=== PATIENT | male | born 1960 | race Caucasian/White ===

== ENCOUNTER → 2017-11-03 11:26 | Outpatient (CLI) | payer BC, SELFPAY ==
--- NOTE | 2017-11-03 13:44 | STRESSREP ---
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 The baseline ECG demonstrated normal sinus rhythm. The peak exercise ECG demonstrated somatic/motion artifact with no obvious ECG changes. There was a rare PVC during exercise and recovery. The functional capacity was considered decreased. There was no report of chest discomfort during exercise or recovery. The examination was discontinued secondary to dyspnea. Impression: 1. Technically adequate (percent predicted maximal heart rate greater than 85%) exercise tolerance test 2. Peak exercise ECG was somatic/motion artifact with no obvious ECG changes 3. Rare PVC during exercise and recovery 4. Decreased functional capacity Comment: Heart rate response compatible with deconditioned heart rate response This note was generated with [employer] Dictation software. Every effort was made to ensure accuracy, however, computerized social security specialist mistakes may persist.
--- NOTE | 2017-11-03 13:48 | STRESSREP_ITS ---
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 The baseline ECG demonstrated normal sinus rhythm. The peak exercise ECG demonstrated somatic/motion artifact with no obvious ECG changes. There was a rare PVC during exercise and recovery. The functional capacity was considered decreased. There was no report of chest discomfort during exercise or recovery. The examination was discontinued secondary to dyspnea. Impression: 1. Technically adequate (percent predicted maximal heart rate greater than 85% ) exercise tolerance test 2. Peak exercise ECG was somatic/motion artifact with no obvious ECG changes 3. Rare PVC during exercise and recovery 4. Decreased functional capacity Comment: Heart rate response compatible with deconditioned heart rate response This note was generated with [employer] Dictation software. Every effort was made to ensure accuracy, however, computerized telemetry technician mistakes may persist.
== END ==
PROVIDERS: Family Provider Preventive Medicine Occupational Medicine; PCP Preventive Medicine Occupational Medicine; Visit Provider Preventive Medicine Occupational Medicine
DX: R94.39 Abnormal result of other cardiovascular function study (principal); R94.31 Abnormal electrocardiogram [ECG] [EKG]; E11.65 Type 2 diabetes mellitus with hyperglycemia
CPT/HCPCS: 93017

== ENCOUNTER → 2017-11-30 06:05 | Outpatient (CLI) | payer BC, SELFPAY ==
--- NOTE | 2017-11-30 11:32 | STRESSREP_ITS ---
Stress Test Report Pharmacologic myocardial perfusion stress test. 57-year-old man with a history of chest pain. Stress protocol: Resting EKG demonstrates normal sinus rhythm with a rate of 91 bpm. Normal intervals are noted. Resting blood pressure is 142/96 meters of mercury. 0.4 mg of regadenoson was infused per usual protocol followed by rapid intravenous saline flush injection continuous EKG monitoring was performed. The maximum heart rate attained was 113 bpm which was 69% of maximum predicted heart rate the maximum workload attained was 1 metabolic equivalent. At rest there were no ST or T-wave changes noted suggest ischemia and at peak infusion no ST or T- wave changes were noted suggest ischemia. Myocardial perfusion protocol. 14.5 mCi of technetium 99m sestamibi was injected at rest. 0.5 mg of regadenoson was infused per usual protocol. At peak infusion 44.6 mCi of technetium 99m sestamibi was injected. Stress images were obtained stress and rest images were reconstructed and compared in the short axis vertical long and horizontal long axis. Gated images were also obtained. Perfusion SPECT analysis: Review of the stress images demonstrate normal uptake of tracer noted in all areas of the myocardium except for small portion of the apex. The resting images demonstrate a similar patent. No areas of overt reversibility are noted suggest ischemia. No previous infarct is noted. Gated SPECT analysis: The gated ejection fraction is 53%. Conclusion: Normal pharmacologic myocardial perfusion stress test. Preserved ejection fraction.
== END ==
PROVIDERS: Family Provider Preventive Medicine Occupational Medicine; PCP Preventive Medicine Occupational Medicine; Visit Provider Physician Assistant Medical
DX: R06.02 Shortness of breath (principal); E11.9 Type 2 diabetes mellitus without complications; E78.5 Hyperlipidemia, unspecified; R68.89 Other general symptoms and signs
CPT/HCPCS: 78452; 93017; A9500; A4216; J2785

== ENCOUNTER → 2019-06-07 06:34 | Outpatient (CLI) | payer BC, SELFPAY ==
[2019-03-22 15:05] VITALS: BMI 37.7
--- NOTE | 2019-06-07 06:37 | CT_ITS ---
STUDY: CT MAXILLOFACIAL SINUSES REASON FOR EXAM: Male, 58 years old. Chronic sinusitis RADIATION DOSAGE (If Supplied By Facility): CTDIvol = ( 29.38 ) mGy, DLP = ( 415.23 ) mGycm TECHNIQUE: The patient was scanned in a multi detector CT scanner. High resolution axial imaging was performed without the administration of intravenous contrast material. Sagittal and coronal images were reconstructed. Individualized dose optimization techniques were used for this CT. COMPARISON: None. FINDINGS: FRONTAL SINUSES: Mild mucosal inflammatory disease. ETHMOIDAL SINUSES: Normal aeration, without mucosal inflammatory disease. MAXILLARY SINUSES: Normal aeration, without mucosal inflammatory disease. Small defects are seen in the medial wall of the right and left maxillary sinus from prior surgery. SPHENOIDAL SINUSES: Normal aeration, without mucosal inflammatory disease. There is patency of the bilateral maxillary infundibuli with normal uncinate processes, ethmoid bullae, and hiatus semilunaris. Normal bilateral middle turbinates. Normal bilateral inferior turbinates. Normal midline nasal septum. There is patency of the bilateral nasal airways. The visualized osseous structures are normal. The visualized bilateral orbital contents are normal. CT/Sinus/Facial Bone IMPRESSION: Mild chronic ethmoid sinusitis. Electronically Signed: Jensen Roy, at 8:14 EDT Tel , Service support ,
== END ==
PROVIDERS: Family Provider Preventive Medicine Occupational Medicine; PCP Preventive Medicine Occupational Medicine
DX: J32.4 Chronic pansinusitis (principal)
CPT/HCPCS: 70486

== ENCOUNTER → 2019-06-21 09:05 | Outpatient (CLI) | payer BC, SELFPAY ==
[2019-03-22 15:05] VITALS: BMI 37.7
[2019-06-25 12:08] LABS: Alternaria tenuis <0.10 kU/L (Class 0); Ash, White <0.10 kU/L (Class 0); Aspergillus fumigatus <0.10 kU/L (Class 0); Bermuda Grass <0.10 kU/L (Class 0); Birch <0.10 kU/L (Class 0); Black Walnut <0.10 kU/L (Class 0); Cat Hair / Dander,Stand <0.10 kU/L (Class 0); Cedar, Mountain <0.10 kU/L (Class 0); Cladosporium herbarum <0.10 kU/L (Class 0); Cockroach, American <0.10 kU/L (Class 0); Cottonwood <0.10 kU/L (Class 0); D farinae Mite <0.10 kU/L (Class 0); D pteronyssinus <0.10 kU/L (Class 0); Dog Epithelia <0.10 kU/L (Class 0); Elm, American White <0.10 kU/L (Class 0); Immunoglobulin E 3 IU/mL (6-495); Maple/Box Elder <0.10 kU/L (Class 0); Mulberry, White <0.10 kU/L (Class 0); Oak, White <0.10 kU/L (Class 0); Pecan <0.10 kU/L (Class 0); Penicillium Notatum <0.10 kU/L (Class 0); Pigweed, Rough <0.10 kU/L (Class 0); Ragweed, Short/Common <0.10 kU/L (Class 0); Russian Thistle <0.10 kU/L (Class 0); Sheep Sorrel <0.10 kU/L (Class 0); Sycamore, American <0.10 kU/L (Class 0); Timothy Grass <0.10 kU/L (Class 0)
[2019-06-25 13:48] LABS: Mouse Urine <0.10 kU/L (Class 0)
== END ==
PROVIDERS: Family Provider Preventive Medicine Occupational Medicine; PCP Preventive Medicine Occupational Medicine; Referring Provider Otolaryngology; Visit Provider Otolaryngology
DX: T78.40XA Allergy, unspecified, initial encounter (principal)
CPT/HCPCS: 36415; 82785; 86003

== ENCOUNTER → 2020-10-02 06:22 | Outpatient (CLI) | payer OTHER, SELFPAY ==
[2020-09-04 10:39] VITALS: BMI 40.4
--- NOTE | 2020-10-02 06:25 | ECHOCS_ITS ---
Reason For Study: DYSPNEA/SOB Procedure This was a 2D Doppler, Color Flow transthoracic echocardiogram. The study was technically difficult. Due to body habitus. Contrast injection was performed. Exam performed in department. Left Ventricle Normal LV size. Mild concentric left ventricular hypertrophy. Left ventricular systolic function is normal. The estimated ejection fraction is 60 %. Stage 1 diastolic dysfunction. No regional wall motion abnormalities noted. Right Ventricle Normal RV size. Normal systolic function. Atria The left atrium is mildly enlarged. Normal right atrium. Mitral Valve Normal mitral valve. Tricuspid Valve Normal tricuspid valve. Aortic Valve Trisinus/trileaflet aortic valve. Pulmonic Valve The pulmonic valve is not well visualized. Great Vessels Normal aortic root. The pulmonary artery is normal size. Normal inferior vena cava. Pericardium/Pleural No pericardial effusion. Medication Diluted definity 4.0ml given slow IV push to enhance endocardial definition. MMode/2D Measurements & Calculations LVIDd: 6.2 cm IVSd: 1.3 cm Ao root diam: 3.4 cm LVIDs: 4.8 cm LVPWd: 1.3 cm FS: 21.9 % LAV(MOD-bp): 64.9 ml LA A4 area: 21.5 cm2 LA dimension(2D): 4.8 cm LAV(MOD-bp) Indexed: 26.3 ml/m2 LAV(MOD-sp2): 58.6 ml LAV(MOD-sp4): 66.3 ml RA A4 area: 16.6 cm2 Time Measurements MV dec time: 0.13 sec Doppler Measurements & Calculations MV E max patel: 63.6 cm/sec Lat Peak E' Patel: 8.6 cm/sec Med Peak E' Patel: 5.9 cm/sec MV A max patel: 76.7 cm/sec E/E' lat: 7.4 E/E' med: 10.8 MV E/A: 0.83 Ao V2 max: 125.2 cm/sec LV V1 max: 90.3 cm/sec PA V2 max: 99.7 cm/sec Ao max P.3 mmHg LV V1 max P.3 mmHg PI dec slope: 185.1 cm/sec2 Interpretation Summary Normal LV size. Mild concentric left ventricular hypertrophy. Left ventricular systolic function is normal. The estimated ejection fraction is 60 %. Stage 1 diastolic dysfunction. Contrast injection was performed. The study was technically difficult. Ordering Physician: Frank Pierre Referring Physician: Radha Hitchcock Performed By: Alexandra Novoa RDCS, RVT
--- NOTE | 2020-10-02 12:51 | STRESSREP ---
Stress Test Report Pharmacologic myocardial perfusion stress test. 60-year-old man with abnormal EKG. Stress protocol: Resting EKG demonstrates sinus rhythm with a rate of 87 bpm normal intervals are noted resting blood pressure is 130/76 mmHg. 0.4 mg of regadenoson was infused per usual protocol followed by rapid intravenous saline flush injection continuous EKG monitoring was performed. The maximum heart rate attained was 106 bpm which was 66% of maximum predicted heart rate the maximum workload was 1 metabolic equivalent. At rest there were no ST or T wave changes noted to suggest abnormal flow reserve at peak infusion nonspecific ST-T wave changes were noted such abnormal flow reserve. Myocardial perfusion protocol. 14.6 mCi of technetium 99m sestamibi was injected at rest. 0.4 mg of regadenoson was infused per usual protocol. At peak infusion 44.1 mCi of technetium 99m sestamibi was injected stress images were obtained stress and rest images were reconstructed and compared in the short axis vertical long horizontal long axis. Gated images were also obtained for Perfusion SPECT analysis: Review of the stress images demonstrate normal uptake of tracer noted in all areas of the myocardium the resting images similarly demonstrate normal uptake of tracer noted in all areas of the myocardium. No areas of reversibility are noted suggest ischemia no previous infarct is noted. Gated SPECT analysis: The gated ejection fraction is 63%. Conclusion: Normal pharmacologic myocardial perfusion stress test. Preserved ejection fraction.
== END ==
PROVIDERS: PCP Nurse Practitioner Family; Referring Provider Nurse Practitioner Family; Visit Provider Nurse Practitioner Family
DX: Z02.4 Encounter for examination for driving license (principal); R94.31 Abnormal electrocardiogram [ECG] [EKG]; E78.5 Hyperlipidemia, unspecified; R06.00 Dyspnea, unspecified; R06.02 Shortness of breath
CPT/HCPCS: 78452; 93017; 93306; A9500; Q9957; A4216; C8929; J2785

== ENCOUNTER → 2021-02-04 | Outpatient (CLI) | payer OTHER, SELFPAY ==
[2021-02-04 15:52] VITALS: BMI 39.7
[2021-02-04 16:23] LABS: Bacteria 0 SEEN /hpf (None Seen); Mucous, Urine 0 SEEN /hpf (<or=2+); Red Blood Cells-Urine 0 SEEN /hpf (0-5); Squamous Epithelial Cells - UA 0 SEEN /hpf (0-5); White Blood Cells 0 SEEN /hpf (0-5)
[2021-02-04 16:54] LABS: Color, Urine Yellow (Yellow); Glucose, Dipstick Normal (Normal); Ketone-Dipstick Negative (Negative); Leukocyte Esterase-Dipstick Negative /ul (Negative); Nitrite-Dipstick Negative (Negative); Occult Blood-Urine Negative /ul (Negative); Protein-Dipstick Negative (Negative); Specific Gravity, Urine 1.015 (1.002-1.030); Urine Bilirubin Dipstick Negative (Negative); Urine Clarity Clear (Clear); Urine Urobilinogen 1 mg/dl (Normal); Urine pH 6.5 (5.0 - 8.0)
== END | disposition home or self-care (01) ==
LOC: LABSPEC 16:22
PROVIDERS: PCP Family Medicine; Referring Provider Family Medicine; Visit Provider Family Medicine
DX: R82.90 Unspecified abnormal findings in urine (principal)
CPT/HCPCS: 81001

== ENCOUNTER 2022-03-11 06:37 | Day surgery (SDC) | payer OTHER, SELFPAY ==
[2022-03-11] VITALS (7 sets, daily range): BP systolic 97–123; BP diastolic 59–69; PULSE 70–87; RESP 16–17; TEMP 36.1–37.1; O2SAT 96–98; BMI 40.8
[2022-03-11] MEDS: Lactated Ringers 1,000 ML 15 ML IV (07:00)
--- NOTE | 2022-03-11 07:39 | H&P.OPEN ---
HPI - General HPI Narrative MINOO SANDERSON, is a 61 M who presents for screening colonoscopy. Patient reports no blood in the stool or abdominal pain. The patient used to have diarrhea but this is resolved. The patient has no family history of colon cancer. Patient has never had a colonoscopy. [facility] Medical History Abnormal EKG Acute maxillary sinusitis Anxiety Arthritis Cardiology follow-up encounter Diabetes DM type 2 (diabetes mellitus, type 2) Encounter for screening for COVID-19 Essential hypertension Former smoker Gastric reflux High cholesterol History of echocardiogram History of heart attack History of stress test HLD (hyperlipidemia) Hypertension Impetigo Shingles Shingles Shortness of breath on exertion Sleep apnea Wears glasses Home Medications acarbose 50 mg tablet 50 mg PO TID 30 days #90 tabs 11/17/17 [History Last Taken Unknown] fenofibrate nanocrystallized 145 mg tablet 145 mg PO QDAY 90 days #90 tabs 11/17/17 [History Last Taken Unknown] pioglitazone 45 mg tablet 45 mg PO QDAY 90 days #90 tabs 11/17/17 [History Last Taken Unknown] lisinopril 20 mg tablet 20 mg PO DAILY 09/04/20 [History Last Taken Unknown] dicyclomine 20 mg tablet 20 mg PO BID PRN Stomach Upset 02/04/21 [History Last Taken Unknown] gabapentin 400 mg capsule 400 mg PO TID 02/04/21 [History Last Taken Unknown] glipizide 10 mg tablet, extended release 24 hr 5 mg PO QDAY 90 days #45 tabs 02/04/21 [History Last Taken Unknown] omeprazole 20 mg capsule,delayed release 20 mg PO DAILY 02/04/21 [History Last Taken Unknown] pravastatin 20 mg tablet 80 mg PO QDAY 90 days #360 tabs 02/04/21 [History Last Taken Unknown] multivitamin 1 tab PO DAILY 12/24/21 [History Last Taken Unknown] aspirin 81 mg tablet,delayed release (Adult Low Dose Aspirin) 81 mg PO DAILY 02/11/22 [History Last Taken Unknown] metformin 1,000 mg tablet 1,000 mg PO DAILY 02/11/22 [History Last Taken Unknown] Allergy/AdvReac Type Severity Reaction Status Date / Time No Known Allergies Allergy Verified 03/11/22 07:30 Family History Mother Diabetes Hypertension HLD (hyperlipidemia) Father CAD (coronary artery disease) Alzheimers disease Brother Myocardial infarction Surgical History History of cardiac catheterization Social History Smoking Status: Former smoker how long ago did patient quit smokin alcohol intake: current alcohol intake frequency: holidays/special occasions only Alcohol type: beer substance use type: does not use caffeine: Yes Type: coffee Number of servings: 4 what type of physical activity do you participate in: bicycling frequency: 1-2 times per week duration: 15-30 minutes/day seatbelt use: always do you feel safe at home: Yes Past Medical/Surgical History Planned Operation Planned Operative Procedure/s: COLONOSCOPY Previous Hospitalizations/Surgeries HX Hospitalizations: No Any Problems With Anesthesia: No You/Your Family Experience Fever (Hyperthermia) With Anes: No Cholinesterase deficiency: No Cardiovascular Hx Hypertension: No Respiratory Hx Chronic Obstructive Pulmonary Disease (COPD): No Hx Asthma: No Hx Emphysema: No Hx Sleep Apnea: Yes (NO MACHINE) CPAP: No BIPAP: No Hx Respiratory Tract Infection/Cold (presently): No Result (for STOP score): Positive Smoking Status: Former smoker Neurological Hx Seizures: No Does patient have nerve stimulator: No Miscellaneous Recent Exposure to Contagious Disease: No Allergies No Known Allergies Allergy (Verified 03/11/22 07:30) Discharge Is Pt Admitted From a Intermediate, or a Fpc: No After D/C, Where Do you Plan to Go: Return Home Vital Signs Vital Signs Vital Signs: 03/11/22 07:26 03/11/22 07:26 Temperature 98.8 F Temperature Source Temporal Pulse Rate 87 Respiratory Rate 17 Respiratory Pattern Normal Blood Pressure 123/69 H Blood Pressure Mean 87 Blood Pressure Source Monitor Blood Pressure Position Semi-Fowlers Blood Pressure Location Right Arm Pulse Ox 98 Oxygen Delivery Method Room Air Weight Weight: 293 lb 3.437 oz Body Mass Index (BMI) 40.8 Physical Exam Const alert and oriented x3 Resp normal respiratory effort and normal air movement Cardio regular rate and regular rhythm GI soft to palpation, non-tender and non-distended Assessment & Plan Assessment/Plan (1) Encounter for screening for malignant neoplasm of colon: PLAN: Plan I explained endoscopy in detail to the patient. I explained the risks including but not limited to stroke or heart attack with anesthesia, perforation of the GI tract, bleeding, infection. I explained that any of these could necessitate further emergency surgery. The patient understands and all questions were answered sufficiently. The patient wishes to proceed with procedure. Saad Yao MD Pager: [facility] [address] [place] [address] [address] [place] [address] Office: Surgery Risks - Colonoscopy Risks Include but are not Limited To: Risks include but are not limited to: Bleeding, perforation requiring further surgery, inability to complete colonoscopy requiring barium enema.
--- NOTE | 2022-03-11 08:16 | OP.CCLET_ITS ---
03/11/2022 Jean-Pierre Casas Re : Colonoscopy procedure for Alton Vargas Dear Dr. Casas This procedure was performed on Friday, March 11, 2022. My impressions and recommendations are as follows: Impressions : - Preparation of the colon was poor. - Diverticulosis in the sigmoid colon. - No specimens collected. Recommendations : - Discharge patient to home. - Resume previous diet. - Continue present medications. - Repeat colonoscopy in 1 year because the bowel preparation was poor. My findings are described in the full procedure note, which is enclosed. If I can be of further assistance, please feel free to contact me at Doctor phone number(s): , Work: . Sincerely, Saad Yao MD 03/11/2022 8:15:39 AM This report has been signed electronically.
--- NOTE | 2022-03-11 08:16 | OP.COLON_ITS ---
Patient Name: Alton Vargas Procedure Date: 03/11/2022 7:46 AM Date of : 1960 Age: 61 Procedure: Colonoscopy Indications: Screening for colorectal malignant neoplasm Providers: Saad Yao MD Referring MD: Saad Yao MD Medicines: Monitored Anesthesia Care Patient Profile: This is a 61 year old male. Refer to note in patient chart for documentation of history and physical. Last Colonoscopy: none. The patient's first colonoscopy is today. Complications: No immediate complications. Estimated blood loss: Minimal. Procedure: Pre-Anesthesia Assessment: - Prior to the procedure, a History and Physical was performed, and patient medications and allergies were reviewed. The patient's tolerance of previous anesthesia was also reviewed. The risks and benefits of the procedure and the sedation options and risks were discussed with the patient. All questions were answered, and informed consent was obtained. Prior Anticoagulants: The patient has taken no previous anticoagulant or antiplatelet agents. After reviewing the risks and benefits, the patient was deemed in satisfactory condition to undergo the procedure. After I obtained informed consent, the scope was passed under direct vision. Throughout the procedure, the patient's blood pressure, pulse, and oxygen saturations were monitored continuously. The Colonoscope was introduced through the anus with the intention of advancing to the cecum. The scope was advanced to the hepatic flexure before the procedure was aborted. Medications were not given. The colonoscopy was unusually difficult due to inadequate bowel prep. The patient tolerated the procedure well. The quality of the bowel preparation was poor. Scope In: 7:52:51 AM Scope Out: 8:08:59 AM Total Procedure Duration Time 0 hours 16 minutes 8 seconds Findings: Multiple small-mouthed diverticula were found in the sigmoid colon. Impression: - Preparation of the colon was poor. - Diverticulosis in the sigmoid colon. - No specimens collected. Recommendation: - Discharge patient to home. - Resume previous diet. - Continue present medications. - Repeat colonoscopy in 1 year because the bowel preparation was poor. Procedure Code(s): --- Professional --- 90834, 53, Colonoscopy, flexible; diagnostic, including collection of specimen(s) by brushing or washing, when performed (separate procedure) Diagnosis Code(s): --- Professional --- Z12.11, Encounter for screening for malignant neoplasm of colon K57.30, Diverticulosis of large intestine without perforation or abscess without bleeding CPT copyright 2017 [employer]. All rights reserved. The codes documented in this report are preliminary and upon medical coder review may be revised to meet current compliance requirements. Saad Yao MD 03/11/2022 8:15:39 AM This report has been signed electronically. Number of Addenda: 0 Note Initiated On: 03/11/2022 7:46 AM
[2022-03-11 08:26] LABS: Bedside Glucose 90 mg/dL (74-106)
--- NOTE | 2022-03-11 08:59 | SUR.PHASEII ---
Patient awaiting barium enema scheduled for 1300. will wait in AC room 12.
--- NOTE | 2022-03-11 13:05 | RAD_ITS ---
STUDY: X-RAY - ABDOMEN/PELVIS REASON FOR EXAM: Male, 61 years old. Unable to complete screening colonoscopy TECHNIQUE: Single AP view of the abdomen / pelvis. COMPARISON: None. FINDINGS: Residual fecal material seen throughout the colon. Calcified gallstone seen in the right upper quadrant. The visualized liver, spleen and kidneys are grossly normal in size and morphology. Normal soft tissue structures. Normal visualized osseous structures. RAD/Abdomen Single View IMPRESSION: Residual fecal material seen in the colon. Electronically Signed: Ryne Santos MD at 14:08 EDT ,
== END 2022-03-11 12:46 | disposition home or self-care (01) ==
LOC: EN 06:38 → AC 06:40
PROVIDERS: PCP Nurse Practitioner Family; Referring Provider Surgery; Visit Provider Surgery
PROC: 0DJD8ZZ Inspection of Lower Intestinal Tract, Via Natural or Artificial Opening Endoscopic (ICD-10-PCS; CPT 45378; principal; 2022-03-11 07:55)
DX: Z12.11 Encounter for screening for malignant neoplasm of colon (principal); K57.30 Diverticulosis of large intestine without perforation or abscess without bleeding; E11.9 Type 2 diabetes mellitus without complications; I10 Essential (primary) hypertension; E78.5 Hyperlipidemia, unspecified; K21.9 Gastro-esophageal reflux disease without esophagitis; Z79.82 Long term (current) use of aspirin; Z79.84 Long term (current) use of oral hypoglycemic drugs; Z79.899 Other long term (current) drug therapy; Z87.891 Personal history of nicotine dependence
CPT/HCPCS: 45378; 74018; 74280; 82962; J7120; J2405

== ENCOUNTER 2022-12-17 08:12 | Inpatient (IN) | payer OTHER, SELFPAY ==
[2022-12-17 08:14] VITALS: BP 128/96; PULSE 93; RESP 18; TEMP 36.6; O2SAT 97; BMI 39.7
--- NOTE | 2022-12-17 08:19 | EKG12_ITS ---
Test Reason : ABNORMAL LABS Blood Pressure : / mmHG Vent. Rate : 091 BPM Atrial Rate : 091 BPM P-R Int : 158 ms QRS Dur : 104 ms QT Int : 320 ms P-R-T Axes : 033 -44 081 degrees QTc Int : 393 ms Sinus rhythm with frequent Premature ventricular complexes Left axis deviation Low voltage QRS Incomplete right bundle branch block Inferior infarct , age undetermined Possible Anterolateral infarct , age undetermined Abnormal ECG Confirmed by EVETTE ROBERTS, MONIE ([id number]), photography editor DIMITRI LARA ([id number]) on 12/19/2022 2:10:38 PM Referred By: LUIS Confirmed By:MONIE ALAS MD
[2022-12-17 08:27] LABS: Bacteria 0 SEEN /hpf (None Seen); Color, Urine Yellow (Yellow); Glucose, Dipstick Normal (Normal); Ketone-Dipstick Negative (Negative); Leukocyte Esterase-Dipstick Negative /ul (Negative); Mucous, Urine 0 SEEN /hpf (<or=2+); Nitrite-Dipstick Negative (Negative); Occult Blood-Urine 150 /ul (Negative); Protein-Dipstick Negative (Negative); Red Blood Cells-Urine 0 SEEN /hpf (0-5); Squamous Epithelial Cells - UA 0 SEEN /hpf (0-5); Urine Bilirubin Dipstick Negative (Negative); Urine Clarity Clear (Clear); Urine Urobilinogen Normal (Normal); White Blood Cells 0 SEEN /hpf (0-5)
--- NOTE | 2022-12-17 08:27 | EDS_ITS ---
HPI History of Present Illness Chief Complaint: Abn Labs Informant: patient, parent and PCP Narrative Narrative: Patient sent here from primary care office due to abnormal labs that were done yesterday, specifically because of renal failure and hyperkalemia. Patient has not been feeling well for the last couple weeks. He had decreased urine output, until his PCP told him to drink more water which he did, which increased his urine output. He states as a result of all this, he actually has been having to get up in the middle of the night to urinate. He has some chronic dyspnea with exertion which is no worse. He did not notice edema in his legs which is there, he states his legs are as usual. He denies any recent illness, but his mom states he had COVID in August and he has not been right since. [facility] Medical History Abnormal EKG Acute maxillary sinusitis Anxiety Arthritis Cardiology follow-up encounter Diabetes DM type 2 (diabetes mellitus, type 2) Encounter for screening for COVID-19 Essential hypertension Former smoker Gastric reflux High cholesterol History of echocardiogram History of heart attack History of stress test HLD (hyperlipidemia) Hypertension Impetigo Shingles Shingles Shortness of breath on exertion Sleep apnea Wears glasses Home Medications acarbose 50 mg tablet 50 mg PO TID 30 days #90 tabs 11/17/17 [History Last Taken 12/16/22] pioglitazone 45 mg tablet 45 mg PO QDAY 90 days #90 tabs 11/17/17 [History Last Taken Unknown] omeprazole 20 mg capsule,delayed release 20 mg PO DAILY 02/04/21 [History Last Taken 12/16/22] multivitamin 1 tab PO DAILY 12/24/21 [History Last Taken 12/17/22] aspirin 81 mg tablet,delayed release (Adult Low Dose Aspirin) 81 mg PO DAILY 02/11/22 [History Last Taken Unknown] pravastatin 80 mg tablet 80 mg PO DAILY CHOLESTEROL 12/17/22 [History Last Taken 12/16/22] Allergy/AdvReac Type Severity Reaction Status Date / Time No Known Allergies Allergy Verified 12/17/22 08:13 Family History Mother Diabetes Hypertension HLD (hyperlipidemia) Father CAD (coronary artery disease) Alzheimers disease Brother Myocardial infarction Surgical History History of cardiac catheterization Social History Smoking Status: Former smoker how long ago did patient quit smokin alcohol intake: current alcohol intake frequency: holidays/special occasions only Alcohol type: beer substance use type: does not use caffeine: Yes Type: coffee Number of servings: 4 what type of physical activity do you participate in: bicycling frequency: 1-2 times per week duration: 15-30 minutes/day seatbelt use: always do you feel safe at home: Yes ROS ROS ED Constitutional Constitutional ED: Denies chills or fever(s) Eyes Eyes: Denies change in vision or diplopia ENT ENT ED: Denies rhinorrhea or sore throat Cardiovascular Cardiovascular: Denies chest pain, orthopnea or palpitations Respiratory/Chest Respiratory/Chest: Reports dyspnea on exertion; Denies cough or orthopnea Gastrointestinal Gastrointestinal: Reports constipation; Denies abdominal pain, diarrhea, melena, nausea or vomiting Genitourinary Genitourinary ED: Reports as per HPI and decreased urination; Denies dysuria or hematuria Musculoskeletal Musculoskeletal: Denies back pain or neck pain Integumentary Denies abscess or rash Neurologic Neurologic: Denies headache(s), paresthesias or weakness Psychiatric Psychiatric: Denies anxiety or suicidal thoughts EXAM Physical Exam Const Vital Signs: 12/17/22 08:14 12/17/22 09:51 Temperature 97.8 F Temperature Source Temporal Pulse Rate 93 Respiratory Rate 18 Respiratory Pattern Normal Blood Pressure 128/96 H Blood Pressure Mean 106 Pulse Ox 97 Oxygen Delivery Method Room Air Positive well nourished, well developed and obese General Appearance ED: well developed and NAD Nutritional Appearance: obese HEENT Reports moist mucous membranes normocephalic and atraumatic Eyes PERRL and EOMs intact bilaterally Neck full ROM and supple Resp normal respiratory effort and clear to auscultation bilaterally Cardio regular rate, regular rhythm and no murmurs GI non-tender and non-distended Auscultation: normoactive bowel sounds Palpation: soft Back/Spine no CVA tenderness General Back: other FROM Extremity normal to inspection General Extremety ED: Yes edema; Negative for pulses abnormal or tenderness General Extremity: edema bilateral lower extremity Details: moderate; Negative for pulses abnormal Neuro oriented x3, CN's II-XII intact bilaterally, no sensory deficits noted and gait normal Sensorium / Orientation: awake and alert Motor Exam: strength 5/5 throughout Psych mental status grossly normal Skin no rashes or lesions noted and no wounds MDM MDM MDM Narrative Medical decision making narrative: Patient has never had his creatinine measured here, I did review outpatient labs showing old measurements from May 28, 2022 with BUN 26 creatinine 1.59 and potassium 5.0. Labs from yesterday as an outpatient and show BUN 62 creatinine 4.61 and potassium 5.4 with an estimated EGFR of 13. Repeated those labs today potassium is up to 6.5, obtained a urinalysis which shows occult blood but is otherwise negative with the specific gravity 1.010, the patient has been drinking fluids in the last couple days and is clinically not dehydrated, EKG does not show any changes of hyperkalemia, so holding off on emergent treatments. Clinically and hemodynamically stable with normal vital signs. Discussed with nephrology Dr. Christian, who agrees with admission and requests a renal u/s, which is ordered. History & Record Review Additional record(s) reviewed:: Prior labs Lab Data Attestation: I reviewed the patient's lab results. Labs: Laboratory Results - last 24 hr 12/17/22 12/17/22 12/17/22 08:20 09:40 09:40 WBC 3.0 L RBC 3.28 L Hgb 10.2 L Hct 32.8 L MCV 100.0 H MCH 31.1 MCHC 31.1 L RDW Std Deviation 56.8 H RDW Coeff of Stanley 15.5 H Plt Count 237 MPV 10.1 Immature Gran % (Auto) 0.300 Neut % (Auto) 56.8 Lymph % (Auto) 33.0 [place] % (Auto) 7.6 Eos % (Auto) 2.0 Baso % (Auto) 0.3 Absolute Neuts (auto) 1.7 L Absolute Lymphs (auto) 1.00 Nucleated RBC % 0 Sodium 137 Potassium 6.5 H* Chloride 109 H Carbon Dioxide 26.0 Anion Gap 2 L BUN 55 H Creatinine 3.53 H Estim Creat Clear Calc 23.11 Est GFR (MDRD) Af Amer 23 L Est GFR (MDRD) Non-Af 19 L BUN/Creatinine Ratio 15.6 Glucose 119 H Calcium 9.2 Urine Color Yellow Urine Clarity Clear Urine pH 6.0 Ur Specific [place] 1.010 Urine Protein Negative Urine Glucose (UA) Normal Urine Ketones Negative Urine Occult Blood 150 H Urine Nitrite Negative Urine Bilirubin Negative Urine Urobilinogen Normal Ur Leukocyte Esterase Negative Urine RBC 0 SEEN Urine WBC 0 SEEN Ur Squamous Epith Cells 0 SEEN Urine Bacteria 0 SEEN Urine Mucus 0 SEEN Radiography Chest X-Ray - ED: 2 View, Read by ED Physician, No Acute Disease and No Infiltrates Rhythm Strip Rhythm Strip: Sinus Rhythm Rate: 91 Ectopy: None EKG Initial EKG: Attestation: I personally reviewed and interpreted this EKG as follows: Interpretation: Sinus Rhythm, No Acute Injury Pattern and LAFB Comments: No signs of hyperkalemia, T waves are unchanged compared with prior Prior EKG tracings: available for review Prior: Unchanged Management Discussion w/another healthcare provider: Hospitalist and Fire Equipment Repairer Inspector (nephrology Dr. Christian) Discharge Plan Dx/Rx/DC Orders Clinical Impression: Acute renal failure (ARF), Hyperkalemia, diminished renal excretion, Anemia, macrocytic Disposition Disposition: Acute Care Hospital [facility]
--- NOTE | 2022-12-17 09:06 | US_ITS ---
INDICATION: acute renal failure EXAMINATION: Ultrasound US Kidney(s) complete (eg, kidneys and bladder) TECHNIQUE: Christian scale and color doppler images were obtained of the kidneys. COMPARISON: None. FINDINGS: RIGHT KIDNEY: 12.2 x 5.7 x 6.4 cm, cortical thickness 1.7 cm.. There is no hydronephrosis. No shadowing calculus, focal lesion or perinephric collection is demonstrated. LEFT KIDNEY: 12.3 x 5.2 x 6.4 cm cortical thickness 2.1 cm.. Simple cyst in the midpole measures 1.3 x 1.1 x 1.1 cm. There is no hydronephrosis. No shadowing calculus, focal lesion or perinephric collection is demonstrated. URINARY BLADDER: No acute abnormality. Bladder volume 1099.5 cc. Postvoid bladder volume 44.08 cc. Bladder wall thickness 5 mm. US/Kidney and Bladder IMPRESSION: Simple cyst of the left kidney 1.3 x 1.1 x 1.1 cm Bladder normal in appearance. Right kidney normal. Electronically Signed: Mark Hanks MD, MARCOS at 11:01 EDT ,
[2022-12-17 09:46] LABS: Absolute Neutrophil Count 1.7 X10^3/uL (2.0-7.7); Basophil# 0.01 X10^3/uL; Basophil% 0.3 % (0-1); Eosinophil# 0.06 X10^3/uL; Hematocrit 32.8 % (40-54); Hemoglobin 10.2 g/dL (13.0-16.5); Mean Corp Hgb Conc 31.1 g/dL (32-36); Mean Corpuscular Hgb 31.1 pg (27.0-32.0); Mean Platelet Vol. 10.1 fl (6.2-12.0); Monocyte# 0.23 X10^3/uL; Monocyte% 7.6 % (0-10); NRBC Flagged by Analyzer 0 % (0-5); Neutrophil # 1.72 X10^3/uL (2.7-7.7); Neutrophil % 56.8 % (47-70); Platelet Count 237 K/mm3 (150-450); RBC Distribution Width CV 15.5 % (11.6-14.6); RBC Distribution Width SD 56.8 fl (35.1-43.9); Red Blood Count 3.28 M/mm3 (4.6-6.2)
[2022-12-17 10:05] LABS: Anion Gap 2 (5-15); BUN 55 mg/dL (7-18); BUN/Creat Ratio 15.6 RATIO (10-20); Calcium,Total 9.2 mg/dL (8.5-10.1); Chloride 109 mmol/L (98-107); Creatinine, Serum 3.53 mg/dL (0.70-1.30); EST Glomerular Filtration Rate 19 mL/min (>60); Est Glom Filt Rate - Afr Amer 23 mL/min (>60); Estimated Creatinine Clearance 23.11 ml/min; Glucose 119 mg/dL (74-106); Potassium 6.5 mmol/L (3.5-5.1); Sodium Level 137 mmol/L (136-145)
--- NOTE | 2022-12-17 10:17 | HP.PCM.HOS_ITS ---
[facility] - General General Date of Admission: 12/17/22 Date of Service: 12/17/22 Chief Complaint: Abnormal labs, high potassium and creatinine. Last year it was 1.59 in May 2022 HPI Narrative MINOO SANDERSON, is a 62 M who was referred to ED by PCP for abnormal blood test. Patient had lab test on 12/16 found to have high BUN/creatinine, 62/4.61 and hyperkalemia 5.4. Prior to that it was also abnormal in May 2022, K5.0 BUN/creatinine 26/1.59. Patient further said he gained a lot of weight last 1 year probably 50 to 60 pounds. 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 He denies any recent chest pain tightness or shortness of breath although he had WA history probably 10 to 15 years ago which was medically managed. Denies history of PCI/stent. Patient also has leg swelling which he is not aware. Patient said for last 6 to 8 months he was told to drink a lot of water for kidney failure and therefore his urinating frequently every 2 hours. Denies burning pain, hematuria or other new change related symptoms. No abdominal pain. He further said he has weak abdominal muscle/hernia. No history of hernia surgery or abdominal surgery. Social history: Quit smoking 17 years ago in 2004. Prior to that 1/2 pack/day since teenage. Denies chronic alcohol use or substance use. Father: Had CAD and Alzheimer's disease. [facility] Medical History Abnormal EKG Acute maxillary sinusitis Anxiety Arthritis Cardiology follow-up encounter Diabetes DM type 2 (diabetes mellitus, type 2) Encounter for screening for COVID-19 Essential hypertension Former smoker Gastric reflux High cholesterol History of echocardiogram History of heart attack History of stress test HLD (hyperlipidemia) Hypertension Impetigo Shingles Shingles Shortness of breath on exertion Sleep apnea Wears glasses Home Medications acarbose 50 mg tablet 50 mg PO TID 30 days #90 tabs 11/17/17 [History Last Taken 12/16/22] pioglitazone 45 mg tablet 45 mg PO QDAY 90 days #90 tabs 11/17/17 [History Last Taken Unknown] omeprazole 20 mg capsule,delayed release 20 mg PO DAILY 02/04/21 [History Last Taken 12/16/22] multivitamin 1 tab PO DAILY 12/24/21 [History Last Taken 12/17/22] aspirin 81 mg tablet,delayed release (Adult Low Dose Aspirin) 81 mg PO DAILY 02/11/22 [History Last Taken Unknown] pravastatin 80 mg tablet 80 mg PO DAILY CHOLESTEROL 12/17/22 [History Last Taken 12/16/22] Allergy/AdvReac Type Severity Reaction Status Date / Time No Known Allergies Allergy Verified 12/17/22 08:13 Family History Mother Diabetes Hypertension HLD (hyperlipidemia) Father CAD (coronary artery disease) Alzheimers disease Brother Myocardial infarction Surgical History History of cardiac catheterization Social History Smoking Status: Former smoker how long ago did patient quit smokin alcohol intake: current alcohol intake frequency: holidays/special occasions only Alcohol type: beer substance use type: does not use caffeine: Yes Type: coffee Number of servings: 4 what type of physical activity do you participate in: bicycling frequency: 1-2 times per week duration: 15-30 minutes/day seatbelt use: always do you feel safe at home: Yes ROS ROS Narrative Constitutional: Reports fatigue and weakness. Gain of weight. No fever. Mainly sedentary life. HEENT: Reports systems reviewed and no addt'l complaints, except as documented Respiratory/Chest: Denies chest pain, shortness of breath at rest or with exertion Gastrointestinal: Denies coffee ground emesis, hematemesis or vomiting Genitourinary: As described in HPI. Denies burning urination Musculoskeletal: Denies joint pain and limited range of motion Neurologic: Denies seizure-like activity or stroke skin: No ulcer. No rash Endocrinology: DM type II with hyperglycemia. Reports systems reviewed and no addt'l complaints, except as documented Hematologic/Lymphatic: Reports systems reviewed and no addt'l complaints, except as documented Rest 14 ROS are negative except as mentioned in HPI Vital Signs Vital Signs Vital Signs: 12/17/22 08:14 12/17/22 09:51 Temperature 97.8 F Temperature Source Temporal Pulse Rate 93 Respiratory Rate 18 Respiratory Pattern Normal Blood Pressure 128/96 H Blood Pressure Mean 106 Pulse Ox 97 Oxygen Delivery Method Room Air Weight Weight: 285 lb Body Mass Index (BMI) 39.7 Physical Exam Narrative Physical exam: General: Alert, Oriented x3, Cooperative, morbid obesity BMI 42.0 kg/m? HEENT: Atraumatic, PERRLA, EOMI, Normocephalic Oral: Oral mucosa dry. No Gingival or Mucosal Lesions/ Ulcerations Neck: Supple, No JVD, Negative Carotid Bruits Lungs: Air entry diminished in bilateral lung bases. No crepitation/rhonchi Cardiovascular: Regular rate, Regular Rhythm, Normal S1, Normal S2, No murmurs Abdomen: Bowel Sounds Present, Soft, Non Tender, Non-Distended. Weak abdominal recti muscles with impulse on coughing. No palpable hernial swelling or sac. : No renal angle tenderness. No suprapubic tenderness. Extremities: 2+ below-knee pitting ankle edema. Capillary Refill Less than 3 Seconds Skin: No rashes, No breakdown Musculoskeletal: No Tenderness to Palpation of Joints or Extremities. Muscle strength 5/5 at major joints. ROM intact. Neurological: Cranial nerves II-XII grossly intact, DTR 2+/4 and Symmetrical, Neuro grossly intact Psych/Mental Status: Flat affect. Results Lab / Micro Data Result Diagrams: 12/17/22 09:40 12/17/22 11:03 Labs: Laboratory Results - last 24 hr 12/17/22 08:20: Urine Color Yellow, Urine Clarity Clear, Urine pH 6.0, Ur Specific [place] 1.010, Urine Protein Negative, Urine Glucose (UA) Normal, Urine Ketones Negative, Urine Occult Blood 150 H, Urine Nitrite Negative, Urine Bilirubin Negative, Urine Urobilinogen Normal, Ur Leukocyte Esterase Negative, Urine RBC 0 SEEN, Urine WBC 0 SEEN, Ur Squamous Epith Cells 0 SEEN, Urine Bacteria 0 SEEN, Urine Mucus 0 SEEN 12/17/22 09:40: WBC 3.0 L, RBC 3.28 L, Hgb 10.2 L, Hct 32.8 L, MCV 100.0 H, MCH 31.1, MCHC 31.1 L, RDW Std Deviation 56.8 H, RDW Coeff of [place] 15.5 H, Plt Count 237, MPV 10.1, Immature Gran % (Auto) 0.300, Neut % (Auto) 56.8, Lymph % (Auto) 33.0, [place] % (Auto) 7.6, Eos % (Auto) 2.0, Baso % (Auto) 0.3, Absolute Neuts (auto) 1.7 L, Absolute Lymphs (auto) 1.00, Nucleated RBC % 0 12/17/22 09:40: Sodium 137, Potassium 6.5 H*, Chloride 109 H, Carbon Dioxide 26.0, Anion Gap 2 L, BUN 55 H, Creatinine 3.53 H, Estim Creat Clear Calc 23.11, Est GFR (MDRD) Af Amer 23 L, Est GFR (MDRD) Non-Af 19 L, BUN/Creatinine Ratio 15.6, Glucose 119 H, Calcium 9.2 Rhythm Strip Rhythm Strip: Sinus Rhythm Rate: 91 Ectopy: None Assessment & Plan Assessment/Plan (1) AR (acute kidney injury): (2) CKD stage G3b/A1, GFR 30-44 and albumin creatinine ratio <30 mg/g: PLAN: Plan This is 62-year-old gentleman is being admitted for evaluation of acute kidney injury on CKD and hyperkalemia generalized swelling. 1. AR on CKD stage IIIb with hyperkalemia: Patient is being admitted in PCU. Potassium 6.5, BUN/creatinine 55/3.53, bicarb 26. Hyperkalemia cocktail was given including calcium gluconate, insulin and D50. Kayexalate given. Twelve- lead EKG individually reviewed shows sinus rhythm at 91 BPM, frequent PVCs, LAD, low voltage QRS, incomplete RBBB with nonspecific ST-T changes. Lasix 40 mg IV 1 dose. Discussed with the marketing segment manager. Renal ultrasound was done shows simple cyst of left kidney 1.3 cm otherwise normal bladder and left kidney. Serum magnesium and phosphorus are normal. 2. CKD stage IIIb with possible cardiorenal disease/diabetic nephropathy and heart failure exact etiology classification unclear: Patient had [place] about 3 years ago. Patient might have heart failure with leg swelling and weight gain therefore 2D echo is ordered. Patient has mild chronic normocytic normochromic anemia probably due to CKD. BNP ordered Patient has blood work report from May 28, 2022 shows potassium 5.0, BUN/creatinine 26/1.59, estimated creatinine clearance 45 mill per minute, normal liver chemistry, calcium 9.1. H&H 11.6/35%. Platelet count 239,000.A1c 6.2% on 01/28/2022 On 12/16, sodium normal. K5.4, BUN/creatinine 62/4.61. Albumin 4.0. Liver chemistry normal. H&H 10% platelet count 247,000. 3. Dyslipidemia: Fasting profile from 12/16 shows TG 268, TC 132, LDL 68, HDL 10. Started on the atorvastatin 40 mg daily 4. Hypertension: BP is normal. Monitor and titrate the dose of antihypertensive medications accordingly. 5. DM type II: Glucose in BMP 119. His glucose was 134 in May 2022 and 57 12/16. Glucose profile getting normal probably due to progression of CKD 6. Other chronic comorbid arthritis, morbid obesity, history of shingles and history of sleep apnea: Patient nonadherent with CPAP and does not wear CPAP.. Outpatient follow-up PCP. Living will/advanced directive/end of life care: Patient does not have living will or advanced directive. After discussion of benefits/risks procedures involved with full code, DNR CC arrest and DNR CC, the patient and her mother, they are opted for full code. Patient does want artificial life support including intubation, tube feed, ventilator and/chest compression, central venous catheter, vasopressor and DC shock if needed Total time spent in [id number] encounter in discussion of advanced directive 17 minutes. Laboratory Results 12/17/22 08:20: Urine Color Yellow, Urine Clarity Clear, Urine pH 6.0, Ur Specific [place] 1.010, Urine Protein Negative, Urine Glucose (UA) Normal, Urine Ketones Negative, Urine Occult Blood 150 H, Urine Nitrite Negative, Urine Bilirubin Negative, Urine Urobilinogen Normal, Ur Leukocyte Esterase Negative, Urine RBC 0 SEEN, Urine WBC 0 SEEN, Ur Squamous Epith Cells 0 SEEN, Urine Bacteria 0 SEEN, Urine Mucus 0 SEEN 12/17/22 09:40: WBC 3.0 L, RBC 3.28 L, Hgb 10.2 L, Hct 32.8 L, MCV 100.0 H, MCH 31.1, MCHC 31.1 L, RDW Std Deviation 56.8 H, RDW Coeff of [place] 15.5 H, Plt Count 237, MPV 10.1, Immature Gran % (Auto) 0.300, Neut % (Auto) 56.8, Lymph % (Auto) 33.0, [place] % (Auto) 7.6, Eos % (Auto) 2.0, Baso % (Auto) 0.3, Absolute Neuts (auto) 1.7 L, Absolute Lymphs (auto) 1.00, Nucleated RBC % 0 12/17/22 09:40: Sodium 137, Potassium 6.5 H*, Chloride 109 H, Carbon Dioxide 26.0, Anion Gap 2 L, BUN 55 H, Creatinine 3.53 H, Estim Creat Clear Calc 23.11, Est GFR (MDRD) Af Amer 23 L, Est GFR (MDRD) Non-Af 19 L, BUN/Creatinine Ratio 15.6, Glucose 119 H, Calcium 9.2 12/17/22 09:40: Phosphorus 3.9, Magnesium 2.3 12/17/22 11:03: Potassium 6.5 H* Clinical Impression(s) from Imaging Studies Renal Ultrasound 12/17/22 09:06 IMPRESSION: Simple cyst of the left kidney 1.3 x 1.1 x 1.1 cm Bladder normal in appearance. Right kidney normal. Chest X-Ray 12/17/22 10:57 IMPRESSION: Increased aeration consistent with strong inspiratory effort and/or mild COPD. Charges/Coding Visit Charges Inpatient E&M: 93227 Init Hosp L3 Procedures Hospitalists Procedures: 26593 Advncd Care Plan 30 Min
[2022-12-17 10:47] LABS: Magnesium 2.3 mg/dL (1.6-2.6); Phosphorus 3.9 mg/dL (2.5-4.9)
--- NOTE | 2022-12-17 10:57 | RAD_ITS ---
INDICATION: SHELDON EXAMINATION/TECHNIQUE: X-RAY - XR Chest 2 Views COMPARISON: None. FINDINGS: LINES/DEVICES: None. LUNGS: Moderate over aeration consistent with strong inspiratory effort and/or mild COPD. Lungs clear. MEDIASTINUM AND CARDIOVASCULAR STRUCTURES: Cardiac silhouette not enlarged. Central airways and mediastinal contour are unremarkable. BONES AND SOFT TISSUES: Unremarkable. RAD/Chest PA and Lateral IMPRESSION: Increased aeration consistent with strong inspiratory effort and/or mild COPD. Electronically Signed: Mark Hanks MD, MARCOS at 10:16 EDT ,
[2022-12-17 11:15] LABS: Potassium 6.5 mmol/L (3.5-5.1)
[2022-12-17 11:16] VITALS: BP 127/86; PULSE 86; RESP 16; TEMP 36.6; O2SAT 98
--- NOTE | 2022-12-17 11:17 | ED.RN ---
ADMISSION MEDS NOT GIVEN IN ED, UNABLE TO OBTAIN REPEAT POTASSIUM, LAB NOTIFIED TO DRAW.
[2022-12-17 13:04] VITALS: BMI 42.0
[2022-12-17 13:05] VITALS: BP 111/70; PULSE 86; RESP 18; TEMP 36.1; O2SAT 96
[2022-12-17] MEDS: Insulin Lispro 10 UNIT in Syringe 0 ML 6 UNIT IV (13:46)
[2022-12-17] MEDS: Sodium Polystyrene Sulfonate 15 GM/60 ML UDC 30 GM PO (13:46)
[2022-12-17] MEDS: Dextrose 50%-Water 25 GM/50 ML DISP.SYRIN IV (13:47)
[2022-12-17] MEDS: Calcium Gluconate 1 GM/10 ML Vial IVP (14:52)
--- NOTE | 2022-12-17 15:28 | CON.PCM.RE_ITS ---
Assessment & Plan Assessment/Plan (1) AR (acute kidney injury): (2) Chronic kidney disease, stage 3b: (3) Hyperkalemia: (4) Edema: PLAN: Plan Impression/Plan: The patient is a 62-year-old man with past history of type 2 diabetes mellitus, hypertension, hyperlipidemia, BASHIR, and GERD. The patient presented to the hospital on 12/17/2022 because of abnormal blood work showing AR on CKD. [facility] is following for AR on CKD, hyperkalemia, and volume overload. Acute kidney injury on chronic kidney disease stage IIIb. The patient was found to have AR on CKD with serum creatinine of 4.61 mg/dL on 12/16/2022. Serum creatinine was 1.59 mg/dL on 05/28/2022. The patient was instructed by his PCP to present to the emergency department because of the sudden rise in serum creatinine. Repeat serum creatinine at the hospital on 12/17/2022 was better at 3.53 mg/dL. However, the patient is hyperkalemic with potassium level of 6.5 mmol/L. Suspect increasing creatinine is due to progression of underlying CKD. Nevertheless, loss of GFR is quite quick. He has lost 23 mL/min of GFR in the last 6 months. Therefore, we should look for any reversible causes. The patient may have cardiorenal syndrome since he does have edema of the lower extremities. I agree with treating the patient with Lasix although I would not yet schedule diuretic every day. Lasix will help the patient excrete potassium as well. Another possibility would be progression of nephrotic syndrome possibly due to diabetic kidney disease. I will check urine protein to creatinine ratio. There is no urgent need for kidney replacement therapy. Recheck renal function, volume status, electrolytes, and acid-base status again tomorrow. Hyperkalemia. Potassium level 6.5 mmol/L. Hyperkalemia is likely due to AR on CKD and dietary indiscretion. The patient was not on KEYON inhibitor or supplemental potassium chloride as far as I can tell from medication review. The patient has absolutely no idea what he takes at home. The patient is being treated with medical therapy with insulin?D50. He is also getting SPS. Recheck serum potassium again tomorrow. Edema. The patient has lower extremity edema although there is no evidence of pulmonary edema on chest x-ray or an lung exam. Nevertheless, I agree with 1 dose of IV Lasix and rechecking volume status and renal function again tomorrow. I will also check urine protein to creatinine ratio. Agree with plan to check echocardiogram on 12/19/2022. Nephrology plan discussed with Dr. Fontana. HPI Consult Data Date of Consult: 12/17/22 HPI Narrative Reason for Consultation: Acute kidney injury on chronic kidney disease HPI Narrative: MINOO SANDERSON is a 62-year-old man with past history of type 2 diabetes mellitus, hypertension, hyperlipidemia, BASHIR, and GERD. The patient presented to the hospital on 12/17/2022 because of abnormal blood work. Patient was found to have serum creatinine of 4.61 mg/dL on 12/16/2022 with mild hyperkalemia. Potassium was 5.4 mmol/L. 6 months earlier on 05/28/2022, serum creatinine was 1.59 mg/dL. The patient actually feels relatively well. He denies chest pain, shortness of breath, nausea, vomiting, or anorexia. He does have loose bowel movement for the past 3 to 4 weeks. He also complains of urinary frequency which has been more severe in the last 3 months. There is no urinary dribbling, hesitation or incontinence. Ultrasound kidneys from earlier today did not show any hydroneph rosis. The patient does have chronic lower extremity edema. He believes that edema has been stable in severity for the last 3 months. He reports recent weight gain, but he attributes it to increasing oral intake. He denies orthopnea or PND. The patient denies taking NSAIDs on a regular basis. [facility] Medical History Abnormal EKG Acute maxillary sinusitis Anxiety Arthritis Cardiology follow-up encounter Diabetes DM type 2 (diabetes mellitus, type 2) Encounter for screening for COVID-19 Essential hypertension Former smoker Gastric reflux High cholesterol History of echocardiogram History of heart attack History of stress test HLD (hyperlipidemia) Hypertension Impetigo Shingles Shingles Shortness of breath on exertion Sleep apnea Wears glasses Home Medications acarbose 50 mg tablet 50 mg PO TID 30 days #90 tabs 11/17/17 [History Last Taken 12/16/22] pioglitazone 45 mg tablet 45 mg PO QDAY 90 days #90 tabs 11/17/17 [History Last Taken Unknown] omeprazole 20 mg capsule,delayed release 20 mg PO DAILY 02/04/21 [History Last Taken 12/16/22] multivitamin 1 tab PO DAILY 12/24/21 [History Last Taken 12/17/22] aspirin 81 mg tablet,delayed release (Adult Low Dose Aspirin) 81 mg PO DAILY 02/11/22 [History Last Taken Unknown] pravastatin 80 mg tablet 80 mg PO DAILY CHOLESTEROL 12/17/22 [History Last Taken 12/16/22] Allergy/AdvReac Type Severity Reaction Status Date / Time No Known Allergies Allergy Verified 12/17/22 08:13 Family History Mother Diabetes Hypertension HLD (hyperlipidemia) Father CAD (coronary artery disease) Alzheimers disease Brother Myocardial infarction Surgical History History of cardiac catheterization Social History Smoking Status: Former smoker how long ago did patient quit smokin alcohol intake: current alcohol intake frequency: holidays/special occasions only Alcohol type: beer substance use type: does not use caffeine: Yes Type: coffee Number of servings: 4 what type of physical activity do you participate in: bicycling frequency: 1-2 times per week duration: 15-30 minutes/day seatbelt use: always do you feel safe at home: Yes ROS ROS Narrative 07/04 ROS was done and is otherwise noncontributory to HPI. Physical Exam Narrative General appearance: Alert and oriented x3, NAD. HEENT: Normocephalic, atraumatic, mucous membrane moist, no erythema. PERRLA, EOMI , hearing is intact. Neck: Supple, no JVD although neck is thick. No thyromegaly palpable. Trachea is midline. Cardiovascular: Normal S1, S2. No rubs, murmurs, or gallops. Lungs: Clear to auscultation bilaterally. Abdomen: Normal bowel sound, obese, soft, nontender, no guarding or rebound. Extremities: No clubbing or cyanosis. There is 2+ edema of the lower extremities bilaterally. Neurologic: No focal neurologic deficits. Strength are equal bilaterally. Skin: Warm and dry, no rash. Musculoskeletal: Full range of motion, no joint swelling. Psychiatric: Normal mood and affect. Lab / Micro Data Result Diagrams: 12/17/22 09:40 12/17/22 11:03 Labs: Laboratory Results - last 24 hr 12/17/22 08:20: Urine Color Yellow, Urine Clarity Clear, Urine pH 6.0, Ur Spec ific [place] 1.010, Urine Protein Negative, Urine Glucose (UA) Normal, Urine Ketones Negative, Urine Occult Blood 150 H, Urine Nitrite Negative, Urine Bilirubin Negative, Urine Urobilinogen Normal, Ur Leukocyte Esterase Negative, Urine RBC 0 SEEN, Urine WBC 0 SEEN, Ur Squamous Epith Cells 0 SEEN, Urine Bacteria 0 SEEN, Urine Mucus 0 SEEN 12/17/22 09:40: WBC 3.0 L, RBC 3.28 L, Hgb 10.2 L, Hct 32.8 L, MCV 100.0 H, MCH 31.1, MCHC 31.1 L, RDW Std Deviation 56.8 H, RDW Coeff of [place] 15.5 H, Plt Count 237, MPV 10.1, Immature Gran % (Auto) 0.300, Neut % (Auto) 56.8, Lymph % (Auto) 33.0, [place] % (Auto) 7.6, Eos % (Auto) 2.0, Baso % (Auto) 0.3, Absolute Neuts ( auto) 1.7 L, Absolute Lymphs (auto) 1.00, Nucleated RBC % 0 12/17/22 09:40: Sodium 137, Potassium 6.5 H*, Chloride 109 H, Carbon Dioxide 26.0, Anion Gap 2 L, BUN 55 H, Creatinine 3.53 H, Estim Creat Clear Calc 23.11, Est GFR (MDRD) Af Amer 23 L, Est GFR (MDRD) Non-Af 19 L, BUN/Creatinine Ratio 15.6, Glucose 119 H, Calcium 9.2 12/17/22 09:40: Phosphorus 3.9, Magnesium 2.3 12/17/22 11:03: Potassium 6.5 H* Rhythm Strip Rhythm Strip: Sinus Rhythm Rate: 91 Ectopy: None Radiology Impression Renal Ultrasound 12/17/22 09:06 IMPRESSION: Simple cyst of the left kidney 1.3 x 1.1 x 1.1 cm Bladder normal in appearance. Right kidney normal. Electronically Signed: Mark Hanks MD, MARCOS at 11:01 EDT , Chest X-Ray 12/17/22 10:57 IMPRESSION: Increased aeration consistent with strong inspiratory effort and/or mild COPD. Electronically Signed: Mark Hanks MD, MARCOS at 10:16 EDT ,
[2022-12-17] MEDS: Furosemide 40 MG/4 ML Vial IV (15:46)
[2022-12-17] MEDS: Acarbose 50 MG Tablet PO (17:14)
[2022-12-17 17:19] VITALS: BP 108/72; PULSE 87; RESP 16; TEMP 36.2; O2SAT 97
[2022-12-17 17:37] LABS: Protein, Urine (Random) 8.4 mg/dL (<11.9); Urea Nitrogen, Urine 326 mg/dL (NO RANGE EST.); Urine Sodium 35 mmol/L (Not Establ.)
[2022-12-17 17:45] LABS: Bedside Glucose 73 mg/dL (74-106)
[2022-12-17] MEDS: Heparin Injection (Vial) 5,000 UNIT/ML VIAL 5000 UNIT SC (20:41)
[2022-12-17] MEDS: Pravastatin 80 MG Tablet PO (20:41)
[2022-12-17 20:49] VITALS: BP 91/64; PULSE 95; RESP 16; TEMP 36.6; O2SAT 100
[2022-12-18 00:45] LABS: Bedside Glucose 126 mg/dL (74-106)
[2022-12-18 02:50] VITALS: BP 102/69; PULSE 94; RESP 15; TEMP 36.8; O2SAT 94
[2022-12-18 04:38] VITALS: BMI 41.5
[2022-12-18 06:40] LABS: Bedside Glucose 112 mg/dL (74-106)
[2022-12-18 06:55] LABS: Absolute Lymphocyte Count 1.29 X10^3/uL (0.83-4.51); Absolute Neutrophil Count 1.9 X10^3/uL (2.0-7.7); Basophil# 0.01 X10^3/uL; Basophil% 0.3 % (0-1); Eosinophil# 0.04 X10^3/uL; Eosinophils% 1.2 % (0-5); Hematocrit 30.4 % (40-54); Hemoglobin 9.4 g/dL (13.0-16.5); Lymphocyte # 1.29 X10^3/ul (0.83-4.51); Lymphocyte % 37.8 % (19-41); Mean Corp Hgb Conc 30.9 g/dL (32-36); Mean Corpuscular Hgb 30.7 pg (27.0-32.0); Mean Corpuscular Volume 99.3 fL (80-94); Mean Platelet Vol. 10.3 fl (6.2-12.0); Monocyte# 0.18 X10^3/uL; Monocyte% 5.3 % (0-10); NRBC Flagged by Analyzer 0 % (0-5); Neutrophil # 1.88 X10^3/uL (2.7-7.7); Neutrophil % 55.1 % (47-70); Platelet Count 233 K/mm3 (150-450); RBC Distribution Width CV 15.8 % (11.6-14.6); RBC Distribution Width SD 57.8 fl (35.1-43.9); Red Blood Count 3.06 M/mm3 (4.6-6.2); White Blood Count 3.4 K/mm3 (4.4-11.0)
[2022-12-18 07:10] LABS: Albumin, Serum 3.1 g/dL (3.2-5.0); Anion Gap 3 (5-15); BUN 49 mg/dL (7-18); BUN/Creat Ratio 17.6 RATIO (10-20); Chloride 110 mmol/L (98-107); Creatinine, Serum 2.79 mg/dL (0.70-1.30); EST Glomerular Filtration Rate 25 mL/min (>60); Est Glom Filt Rate - Afr Amer 30 mL/min (>60); Estimated Creatinine Clearance 29.24 ml/min; Glucose 103 mg/dL (74-106); Phosphorus 3.7 mg/dL (2.5-4.9); Potassium 5.1 mmol/L (3.5-5.1); Sodium Level 140 mmol/L (136-145)
--- NOTE | 2022-12-18 07:49 | PN.HOSP_ITS ---
Reason for Visit Reason for Visit: Diagnoses Hyperkalemia (12/17/22) Acute kidney failure, unspecified (12/17/22) Chronic kidney disease, stage 3b (12/17/22) Edema, unspecified (12/17/22) Follow-up for AR on CKD stage IIIb, hyperkalemia and hypervolemia Objective Data Objective Data Vital Signs: Vital Signs Temp Pulse Resp BP Pulse Ox O2 Del Method 98.3 F 94 15 102/69 94 Room Air 12/18/22 02:50 12/18/22 02:50 12/18/22 02:50 12/18/22 02:50 12/18/22 02:50 12/18/22 03:43 Oxygen Delivery Method Room Air Weight: 297 lb 13.512 oz Body Mass Index (BMI) 41.5 Intake & Output: Intake and Output for Last 24 Hours 12/16/22 12/17/22 12/18/22 23:59 23:59 23:59 Intake Total 240 / 240 Output Total 2585 / 2585 0 / 0 Balance -2345 / -2345 0 / 0 Lab / Micro Data Result Diagrams: 12/18/22 06:30 12/18/22 06:30 Labs: Laboratory Results - last 24 hr 12/17/22 08:20: Urine Color Yellow, Urine Clarity Clear, Urine pH 6.0, Ur Specif ic [place] 1.010, Urine Protein Negative, Urine Glucose (UA) Normal, Urine Ketones Negative, Urine Occult Blood 150 H, Urine Nitrite Negative, Urine Bilirubin Negative, Urine Urobilinogen Normal, Ur Leukocyte Esterase Negative, Urine RBC 0 SEEN, Urine WBC 0 SEEN, Ur Squamous Epith Cells 0 SEEN, Urine Bacteria 0 SEEN, Urine Mucus 0 SEEN 12/17/22 08:20: U Random Total Protein 8.4, Ur Random Sodium 35, Urine Urea Nitrogen 326 12/17/22 08:20: Urine Creatinine 42.30 12/17/22 09:40: WBC 3.0 L, RBC 3.28 L, Hgb 10.2 L, Hct 32.8 L, MCV 100.0 H, MCH 31.1, MCHC 31.1 L, RDW Std Deviation 56.8 H, RDW Coeff of [place] 15.5 H, Plt Count 237, MPV 10.1, Immature Gran % (Auto) 0.300, Neut % (Auto) 56.8, Lymph % (Auto) 33.0, [place] % (Auto) 7.6, Eos % (Auto) 2.0, Baso % (Auto) 0.3, Absolute Neuts (auto) 1.7 L, Absolute Lymphs (auto) 1.00, Nucleated RBC % 0 12/17/22 09:40: Sodium 137, Potassium 6.5 H*, Chloride 109 H, Carbon Dioxide 26.0, Anion Gap 2 L, BUN 55 H, Creatinine 3.53 H, Estim Creat Clear Calc 23.11, Est GFR (MDRD) Af Amer 23 L, Est GFR (MDRD) Non-Af 19 L, BUN/Creatinine Ratio 15.6, Glucose 119 H, Calcium 9.2 12/17/22 09:40: Phosphorus 3.9, Magnesium 2.3 12/17/22 11:03: Potassium 6.5 H* 12/17/22 17:08: POC Glucose 73 L 12/17/22 20:45: POC Glucose 126 H 12/18/22 06:22: POC Glucose 112 H 12/18/22 06:30: WBC 3.4 L, RBC 3.06 L, Hgb 9.4 L, Hct 30.4 L, MCV 99.3 H, MCH 30.7, MCHC 30.9 L, RDW Std Deviation 57.8 H, RDW Coeff of [place] 15.8 H, Plt Count 233, MPV 10.3, Immature Gran % (Auto) 0.300, Neut % (Auto) 55.1, Lymph % (Auto) 37.8, [place] % (Auto) 5.3, Eos % (Auto) 1.2, Baso % (Auto) 0.3, Absolute Neuts (auto) 1.9 L, Absolute Lymphs (auto) 1.29, Nucleated RBC % 0 12/18/22 06:30: Sodium 140, Potassium 5.1, Chloride 110 H, Carbon Dioxide 27.0, Anion Gap 3 L, BUN 49 H, Creatinine 2.79 H, Estim Creat Clear Calc 29.24, Est GFR (MDRD) Af Amer 30 L, Est GFR (MDRD) Non-Af 25 L, BUN/Creatinine Ratio 17.6, Glucose 103, Calcium 9.0, Phosphorus 3.7, Albumin 3.1 L Radiography Diagnostic Testing: Radiology Impression Renal Ultrasound 12/17/22 09:06 IMPRESSION: Simple cyst of the left kidney 1.3 x 1.1 x 1.1 cm Bladder normal in appearance. Right kidney normal. Electronically Signed: Mark Hanks MD, JD at 11:01 EDT , Chest X-Ray 12/17/22 10:57 IMPRESSION: Increased aeration consistent with strong inspiratory effort and/or mild COPD. Electronically Signed: Mark Hanks MD, JD at 10:16 EDT , Rhythm Strip Rhythm Strip: Sinus Rhythm Rate: 91 Ectopy: None Physical Exam Narrative Physical exam: General: Alert, Oriented x3, Cooperative, morbid obesity BMI 42.0 kg/m? HEENT: Atraumatic, PERRLA, EOMI, Normocephalic Oral: Oral mucosa . No Gingival or Mucosal Lesions/ Ulcerations Neck: Supple, No JVD, Negative Carotid Bruits Lungs: Air entry diminished in bilateral lung bases. No crepitation/rhonchi Cardiovascular: Regular rate, Regular Rhythm, Normal S1, Normal S2, No murmurs Abdomen: Bowel Sounds Present, Soft, Non Tender, Non-Distended. Weak abdominal recti muscles with impulse on coughing : No renal angle tenderness. No suprapubic tenderness. Extremities: Leg pitting edema is better, improving. Capillary Refill Less than 3 Seconds Skin: No rashes, No breakdown Musculoskeletal: No Tenderness to Palpation of Joints or Extremities. Muscle strength 5/5 at major joints. ROM intact. Neurological: Cranial nerves II-XII grossly intact, DTR 2+/4 and Symmetrical, Neuro grossly intact Psych/Mental Status: Flat affect. Assessment & Plan Assessment/Plan (1) AR (acute kidney injury): (2) CKD stage G3b/A1, GFR 30-44 and albumin creatinine ratio <30 mg/g: PLAN: Plan This is 62-year-old gentleman is being admitted for evaluation of acute kidney injury on CKD and hyperkalemia generalized swelling. 1. AR on CKD stage IIIb with hyperkalemia and hypervolemia: Patient is being admitted in PCU. Potassium 6.5, BUN/creatinine 55/3.53, bicarb 26. Hyperkalemia cocktail was given including calcium gluconate, insulin and D50. Kayexalate given. Twelve-lead EKG individually reviewed shows sinus rhythm at 91 BPM, frequent PVCs, LAD, low voltage QRS, incomplete RBBB with nonspecific ST-T changes. Lasix 40 mg IV 1 dose. Discussed with the sponge packer. Renal ultrasound was done shows simple cyst of left kidney 1.3 cm otherwise normal bladder and left kidney. Serum magnesium and phosphorus are normal. 12/18: [employer] consult reviewed and discussed with him. Patient had Lasix 40 mg 1 dose yesterday and leg edema is better. BUN/creatinine is improving. Random protein 8.4, sodium 35, urea nitrogen 26. TSH normal. 2. CKD stage IIIb with possible cardiorenal disease/diabetic nephropathy and heart failure exact etiology classification unclear: Patient had [facility] about 3 years ago. Patient might have heart failure with leg swelling and weight gain therefore 2D echo is ordered. Patient has mild chronic normocytic normochromic anemia probably due to CKD. Patient has blood work report from May 28, 2022 shows potassium 5.0, BUN/creatinine 26/1.59, estimated creatinine clearance 45 mill per minute, normal liver chemistry, calcium 9.1. H&H 11.6/35%. Platelet count 239,000.A1c 6.2% on 01/28/2022 On 12/16, sodium normal. K5.4, BUN/creatinine 62/4.61. Albumin 4.0. Liver giancarlo linda normal. H&H 10/31% platelet count 247,000. 3. Dyslipidemia: Fasting profile from 12/16 shows TG 268, TC 132, LDL 68, HDL 10. Started on the atorvastatin 40 mg daily 4. Hypertension: BP is normal. Monitor and titrate the dose of antihypertensive medications accordingly. 5. DM type II: Glucose in BMP 119. His glucose was 134 in May 2022 and 57 12/16. Glucose profile getting normal probably due to progression of CKD 12/18: A1c ordered and pending. 6. Other chronic comorbid arthritis, morbid obesity, history of shingles and history of sleep apnea: Patient nonadherent with CPAP and does not wear CPAP.. Outpatient follow-up PCP. Living will/advanced directive/end of life care: Patient does not have living will or advanced directive. After discussion of benefits/risks procedures involved with full code, DNR CC arrest and DNR CC, the patient and her mother, they are opted for full code. Patient does want artificial life support including intubation, tube feed, vent ilator and/chest compression, central venous catheter, vasopressor and DC shock if needed Clinical Impression(s) from Imaging Studies Renal Ultrasound 12/17/22 09:06 IMPRESSION: Simple cyst of the left kidney 1.3 x 1.1 x 1.1 cm Bladder normal in appearance. Right kidney normal. Chest X-Ray 12/17/22 10:57 IMPRESSION: Increased aeration consistent with strong inspiratory effort and/or mild COPD. Charges/Coding Visit Charges Inpatient E&M: 47017 Subs Hosp L2
[2022-12-18 08:23] LABS: Thyroid Stim Hormone (TSH) 2.34 uIU/mL (0.358-3.74)
[2022-12-18 08:37] VITALS: BP 98/69; PULSE 92; RESP 18; TEMP 36.2; O2SAT 94
[2022-12-18] MEDS: Aspirin E.C. 81 MG Tablet PO (08:39)
[2022-12-18] MEDS: Multivitamins,Therapeutic Tablet 1 TABLET PO (08:39)
[2022-12-18] MEDS: Heparin Injection (Vial) 5,000 UNIT/ML VIAL 5000 UNIT SC ×2 (08:39→21:24)
[2022-12-18] MEDS: Pantoprazole Sodium 20 MG Tablet PO (08:39)
[2022-12-18] MEDS: Acarbose 50 MG Tablet PO ×3 (08:40→16:53)
[2022-12-18 10:02] LABS: BNP,B-Type NATRIURETIC PEPTIDE 50.1 pg/mL (0-100)
[2022-12-18 12:30] LABS: Bedside Glucose 131 mg/dL (74-106)
[2022-12-18 14:31] VITALS: BP 121/73; PULSE 92; RESP 16; TEMP 36.6; O2SAT 98
[2022-12-18 17:16] LABS: Bedside Glucose 112 mg/dL (74-106)
--- NOTE | 2022-12-18 17:20 | PCM.PN.REN ---
Subjective Subjective Following for AR. The patient denies chest pain, shortness of breath, or nausea. Lower extremity edema has improved. Objective Data Objective Data Vital Signs: Vital Signs Temp Pulse Resp BP Pulse Ox O2 Del Method 97.8 F 92 16 121/73 H 98 Room Air 12/18/22 14:31 12/18/22 14:31 12/18/22 14:31 12/18/22 14:31 12/18/22 14:31 12/18/22 14:31 Oxygen Delivery Method Room Air Weight: 135.1 kg Body Mass Index (BMI) 41.5 Intake & Output: Intake and Output for Last 24 Hours 12/16/22 12/17/22 12/18/22 23:59 23:59 23:59 Intake Total 240 / 240 480 / 480 Output Total 2585 / 2585 1400 / 1400 Balance -2345 / -2345 -920 / -920 Lab / Micro Data Result Diagrams: 12/18/22 06:30 12/18/22 06:30 Labs: Laboratory Results - last 24 hr 12/17/22 08:20: U Random Total Protein 8.4, Ur Random Sodium 35, Urine Urea Nitrogen 326 12/17/22 08:20: Urine Creatinine 42.30 12/17/22 17:08: POC Glucose 73 L 12/17/22 20:45: POC Glucose 126 H 12/18/22 06:22: POC Glucose 112 H 12/18/22 06:30: WBC 3.4 L, RBC 3.06 L, Hgb 9.4 L, Hct 30.4 L, MCV 99.3 H, MCH 30.7, MCHC 30.9 L, RDW Std Deviation 57.8 H, RDW Coeff of [place] 15.8 H, Plt Count 233, MPV 10.3, Immature Gran % (Auto) 0.300, Neut % (Auto) 55.1, Lymph % (Auto) 37.8, [place] % (Auto) 5.3, Eos % (Auto) 1.2, Baso % (Auto) 0.3, Absolute Neuts (auto) 1.9 L, Absolute Lymphs (auto) 1.29, Nucleated RBC % 0 12/18/22 06:30: Sodium 140, Potassium 5.1, Chloride 110 H, Carbon Dioxide 27.0, Anion Gap 3 L, BUN 49 H, Creatinine 2.79 H, Estim Creat Clear Calc 29.24, Est GFR (MDRD) Af Amer 30 L, Est GFR (MDRD) Non-Af 25 L, BUN/Creatinine Ratio 17.6, Glucose 103, Calcium 9.0, Phosphorus 3.7, Albumin 3.1 L 12/18/22 06:30: TSH 2.34 12/18/22 09:10: B-Natriuretic Peptide 50.1 12/18/22 12:05: POC Glucose 131 H 12/18/22 16:49: POC Glucose 112 H Rhythm Strip Rhythm Strip: Sinus Rhythm Rate: 91 Ectopy: None Physical Exam Narrative General appearance: Alert and oriented x3, NAD. Neck: Supple, no JVD although neck is thick. No thyromegaly palpable. Trachea is midline. Cardiovascular: Normal S1, S2. No rubs, murmurs, or gallops. Lungs: Clear to auscultation bilaterally. Abdomen: Normal bowel sound, obese, soft, nontender, no guarding or rebound. Extremities: No clubbing or cyanosis. There is 1+ edema of the lower extremities bilaterally. Assessment & Plan Assessment/Plan (1) AR (acute kidney injury): (2) Chronic kidney disease, stage 3b: (3) Hyperkalemia: (4) Edema: PLAN: Plan Impression/Plan: The patient is a 62-year-old man with past history of type 2 diabetes mellitus, hypertension, hyperlipidemia, BASHIR, and GERD. The patient presented to the hospital on 12/17/2022 because of abnormal blood work showing AR on CKD. Nephrology is following for AR on CKD, hyperkalemia, and volume overload. Acute kidney injury on chronic kidney disease stage IIIb. The patient was found to have AR on CKD with serum creatinine of 4.61 mg/dL on 12/16/2022. Serum creatinine was 1.59 mg/dL on 05/28/2022. The patient was instructed by his PCP to present to the emergency department because of the sudden rise in serum creatinine. Repeat serum creatinine at the hospital on 12/17/2022 was better at 3.53 mg/dL. However, the patient is hyperkalemic with potassium level of 6.5 mmol/L. Suspect worsening renal function is due to progression of underlying CKD. Nevertheless, loss of GFR is quite quick. He has lost 23 mL/min of GFR in the last 6 months. Urine protein to creatinine ratio is only 198 mg/g, so progression of CKD due to diabetic kidney disease is less likely. Therefore, we should look for any reversible causes for AR. The patient may have cardiorenal syndrome since he does have edema of the lower extremities. The patient was given 1 dose of IV Lasix yesterday. Agree with holding Lasix today and reassessing renal function and volume status again tomorrow. The patient is scheduled for echocardiogram tomorrow on 12/19/2022. Renal function is stabilized in the last 24 hours. Serum creatinine improved from 3.53 mg/dL on 12/17/2022 down to 2.79 mg/dL today. There is no urgent need for kidney replacement therapy. Recheck renal function, volume status, electrolytes, and acid-base status again tomorrow. Hyperkalemia. Potassium level was 6.5 mmol/L on 12/17/2022. Hyperkalemia is likely due to AR on CKD and dietary indiscretion. The patient was not on KEYON inhibitor or supplemental potassium chloride as far as I can tell from medication review, but the patient has absolutely no idea what he takes at home. The patient is being treated with medical therapy with insulin?D50. He also received SPS. Potassium level is better today at 5.1 mmol/L. Recheck serum potassium again tomorrow. Edema. The patient has lower extremity edema although there is no evidence of pulmonary edema on chest x-ray or an lung exam. The patient received 1 dose of IV Lasix yesterday with clinical improvement without worsening renal function. There is less lower extremity edema. Urine protein to creatinine ratio does not suggest nephrotic syndrome. Agree with plan to check echocardiogram on 12/19/2022. Nephrology plan discussed with Dr. Fontana.
[2022-12-18 18:00] LABS: Hemoglobin A1c 5.8 % (3.8-5.6)
[2022-12-18 20:30] VITALS: BP 128/89; PULSE 95; RESP 18; TEMP 36.6; O2SAT 99
[2022-12-18] MEDS: Pravastatin 80 MG Tablet PO (21:24)
[2022-12-19 02:05] LABS: Bedside Glucose 82 mg/dL (74-106)
[2022-12-19 03:04] VITALS: BP 104/72; PULSE 97; RESP 15; TEMP 36.8; O2SAT 96
[2022-12-19 05:01] VITALS: BMI 40.6
[2022-12-19 05:13] LABS: Absolute Lymphocyte Count 1.14 X10^3/uL (0.83-4.51); Absolute Neutrophil Count 1.4 X10^3/uL (2.0-7.7); Eosinophil# 0.03 X10^3/uL; Eosinophils% 1.1 % (0-5); Hematocrit 30.5 % (40-54); Hemoglobin 9.4 g/dL (13.0-16.5); Lymphocyte # 1.14 X10^3/ul (0.83-4.51); Lymphocyte % 40.7 % (19-41); Mean Corp Hgb Conc 30.8 g/dL (32-36); Mean Corpuscular Hgb 30.6 pg (27.0-32.0); Mean Corpuscular Volume 99.3 fL (80-94); Mean Platelet Vol. 10.1 fl (6.2-12.0); Monocyte# 0.18 X10^3/uL; Monocyte% 6.4 % (0-10); NRBC Flagged by Analyzer 0 % (0-5); Neutrophil # 1.43 X10^3/uL (2.7-7.7); Neutrophil % 51.1 % (47-70); Platelet Count 216 K/mm3 (150-450); RBC Distribution Width CV 15.3 % (11.6-14.6); RBC Distribution Width SD 55.8 fl (35.1-43.9); Red Blood Count 3.07 M/mm3 (4.6-6.2); White Blood Count 2.8 K/mm3 (4.4-11.0)
[2022-12-19 05:37] LABS: Anion Gap 5 (5-15); BUN 39 mg/dL (7-18); BUN/Creat Ratio 17.6 RATIO (10-20); Chloride 110 mmol/L (98-107); Creatinine, Serum 2.21 mg/dL (0.70-1.30); EST Glomerular Filtration Rate 32 mL/min (>60); Est Glom Filt Rate - Afr Amer 39 mL/min (>60); Estimated Creatinine Clearance 36.91 ml/min; Glucose 113 mg/dL (74-106); Potassium 4.2 mmol/L (3.5-5.1); Sodium Level 140 mmol/L (136-145)
--- NOTE | 2022-12-19 05:55 | ECHOCS_ITS ---
Reason For Study: Edema Procedure This was a 2D Doppler, Color Flow transthoracic echocardiogram. The study was technically difficult. Exam performed portable in patient room. Left Ventricle Normal LV size. Mild concentric left ventricular hypertrophy. Left ventricular systolic function is normal. The estimated ejection fraction is 65 %. Stage 1 diastolic dysfunction. No regional wall motion abnormalities noted. Right Ventricle Normal RV size. Normal systolic function. Atria Normal left atrium. Normal right atrium. Mitral Valve Normal mitral valve. Tricuspid Valve Normal tricuspid valve. Aortic Valve The aortic valve is not well visualized. Pulmonic Valve The pulmonic valve is not well visualized. Great Vessels Normal aortic root. The pulmonary artery is normal size. Normal inferior vena cava. Pericardium/Pleural No pericardial effusion. Medication Diluted definity 2ml given slow IV push to enhance endocardial definition. MMode/2D Measurements & Calculations LVIDd: 4.7 cm IVSd: 1.2 cm Ao root diam: 3.5 cm LVIDs: 3.4 cm LVPWd: 1.2 cm FS: 29.0 % LAV(MOD-bp): 66.2 ml LVAd ap4: 36.4 cm2 LVAd ap2: 36.2 cm2 LAV(MOD-bp) Indexed: 26.8 ml/m2 LVLd ap4: 8.0 cm LVLd ap2: 8.6 cm LAV(MOD-sp2): 55.4 ml EDV(MOD-sp4): 137.6 ml EDV(MOD-sp2): 127.3 ml LAV(MOD-sp4): 70.5 ml EDV(sp4-el): 140.6 ml EDV(sp2-el): 128.7 ml LVAs ap4: 21.7 cm2 LVAs ap2: 23.1 cm2 LVLs ap4: 6.9 cm LVLs ap2: 8.3 cm ESV(MOD-sp4): 56.7 ml ESV(MOD-sp2): 52.1 ml ESV(sp4-el): 58.1 ml ESV(sp2-el): 54.5 ml EF(MOD-sp4): 58.8 % EF(MOD-sp2): 59.1 % EF(sp4-el): 58.7 % SV(MOD-sp4): 80.9 ml SV(MOD-sp2): 75.2 ml SV(sp4-el): 82.5 ml LA A4 area: 22.8 cm2 LA dimension(2D): 4.8 cm RA A4 area: 14.6 cm2 Time Measurements MV dec time: 0.09 sec Doppler Measurements & Calculations MV E max patel: 58.8 cm/sec Lat Peak E' Patel: 11.5 cm/sec Med Peak E' Patel: 8.9 cm/sec MV A max patel: 88.9 cm/sec E/E' lat: 5.1 E/E' med: 6.6 MV E/A: 0.66 MV V2 max: 96.4 cm/sec Ao V2 max: 138.0 cm/sec MV max P.7 mmHg MV dec slope: 670.6 cm/sec2 Ao max P.6 mmHg MV V2 mean: 50.5 cm/sec Ao V2 mean: 94.5 cm/sec MV mean P.3 mmHg Ao mean P.1 mmHg MV V2 VTI: 18.2 cm Ao V2 VTI: 28.2 cm AV (velocity ratio): 0.80 LV V1 max: 109.3 cm/sec PA V2 max: 113.6 cm/sec LV V1 max P.8 mmHg PA V2 mean: 83.3 cm/sec LV V1 mean P.0 mmHg LV V1 mean: 60.8 cm/sec LV V1 VTI: 22.7 cm ECHO/Echo Complete W/ Contrast Interpretation Summary Normal LV size. Left ventricular systolic function is normal. The estimated ejection fraction is 65 %. Mild concentric left ventricular hypertrophy. Stage 1 diastolic dysfunction. Contrast injection was performed. Ordering Physician: Chago Fontana Referring Physician: Radha Hitchcock Performed By: Liz Lomeli RVT
[2022-12-19 07:00] LABS: Bedside Glucose 115 mg/dL (74-106)
--- NOTE | 2022-12-19 08:17 | PN.HOSP_ITS ---
Reason for Visit Reason for Visit: Diagnoses Hyperkalemia (12/17/22) Acute kidney failure, unspecified (12/17/22) Chronic kidney disease, stage 3b (12/17/22) Edema, unspecified (12/17/22) Subjective Subjective Feels well. Has been up and walking in hallways without difficultly. Objective Data Objective Data Vital Signs: Vital Signs Temp Pulse Resp BP Pulse Ox O2 Del Method 36.8 C 97 15 104/72 96 Room Air 12/19/22 03:04 12/19/22 03:04 12/19/22 03:04 12/19/22 03:04 12/19/22 03:04 12/19/22 08:13 Oxygen Delivery Method Room Air Weight: 132.1 kg Body Mass Index (BMI) 40.6 Intake & Output: Intake and Output for Last 24 Hours 12/17/22 12/18/22 12/19/22 23:59 23:59 23:59 Intake Total 240 / 240 720 / 720 Output Total 2585 / 2585 2900 / 2900 500 / 500 Balance -2345 / -2345 -2180 / -2180 -500 / -500 Lab / Micro Data Result Diagrams: 12/19/22 04:45 12/19/22 04:45 Labs: Laboratory Results - last 24 hr 12/18/22 06:30: Hemoglobin A1c 5.8 H 12/18/22 06:30: TSH 2.34 12/18/22 09:10: B-Natriuretic Peptide 50.1 12/18/22 12:05: POC Glucose 131 H 12/18/22 16:49: POC Glucose 112 H 12/18/22 21:25: POC Glucose 82 12/19/22 04:45: WBC 2.8 L, RBC 3.07 L, Hgb 9.4 L, Hct 30.5 L, MCV 99.3 H, MCH 30.6, MCHC 30.8 L, RDW Std Deviation 55.8 H, RDW Coeff of Stanley 15.3 H, Plt Count 216, MPV 10.1, Immature Gran % (Auto) 0.700, Neut % (Auto) 51.1, Lymph % (Auto) 40.7, [place] % (Auto) 6.4, Eos % (Auto) 1.1, Baso % (Auto) 0.0, Absolute Neuts (auto) 1.4 L, Absolute Lymphs (auto) 1.14, Nucleated RBC % 0 12/19/22 04:45: Sodium 140, Potassium 4.2, Chloride 110 H, Carbon Dioxide 25.0, Anion Gap 5, BUN 39 H, Creatinine 2.21 H, Estim Creat Clear Calc 36.91, Est GFR (MDRD) Af Amer 39 L, Est GFR (MDRD) Non-Af 32 L, BUN/Creatinine Ratio 17.6, Glucose 113 H, Calcium 9.0 12/19/22 06:42: POC Glucose 115 H Rhythm Strip Rhythm Strip: Sinus Rhythm Rate: 91 Ectopy: None Physical Exam Const alert and no apparent distress HEENT head/scalp atraumatic and moist oral mucous membranes Neck no lymphadenopathy and supple Resp normal respiratory effort, no retractions, no use of accessory muscles and clear to auscultation bilaterally Cardio regular rate, regular rhythm, S1 normal heart sound and S2 normal heart sound GI normal to inspection, nondistended, normoactive bowel sounds, soft to palpation, non-tender and non-distended Assessment & Plan Assessment/Plan (1) AR (acute kidney injury): PLAN: AR on CKD stage IIIb with hyperkalemia and hypervolemia: Patient is being admitted in PCU. Renal ultrasound was done shows simple cyst of left kidney 1.3 cm otherwise normal bladder and left kidney. Serum magnesium and phosphorus are normal. 12/18: Java Software Engineer consult reviewed and discussed with him. Patient had Lasix 40 mg 1 dose yesterday and leg edema is better. BUN/creatinine is improving. Random protein 8.4, sodium 35, urea nitrogen 26. TSH normal. (2) Hyperkalemia: PLAN: Resolved Potassium 6.5, BUN/creatinine 55/3.53, bicarb 26. Hyperkalemia cocktail was given including calcium gluconate, insulin and D50. Kayexalate given. Twelve-lead EKG individually reviewed shows sinus rhythm at 91 BPM, frequent PVCs, LAD, low voltage QRS, incomplete RBBB with nonspecific ST-T changes. Lasix 40 mg IV 1 dose. PLAN: Plan Chronic conditions: * CKD stage IIIb with possible cardiorenal disease/diabetic nephropathy and heart failure exact etiology classification unclear: Patient had [place] about 3 years ago. Patient might have heart failure with leg swelling and weight gain therefore 2D echo is ordered. Patient has mild chronic normocytic normochromic anemia probably due to CKD. * Dyslipidemia: Fasting profile from 12/16 shows TG 268, TC 132, LDL 68, HDL 10. Started on the atorvastatin 40 mg daily * Hypertension: BP is normal. Monitor and titrate the dose of antihypertensive medications accordingly. * DM type II: Glucose in BMP 119. His glucose was 134 in May 2022 and 57 12/16. Glucose profile getting normal probably due to progression of CKD 12/18: A1c 5.8 * arthritis, * morbid obesity, * history of shingles and * history of sleep apnea: Patient nonadherent with CPAP and does not wear CPAP.. Outpatient follow-up PCP. VTE prophylaxis: SQ heparin Code status: full Charges/Coding Visit Charges Inpatient E&M: 07026 Subs Hosp L2
[2022-12-19 09:00] VITALS: BP 122/81; PULSE 97; RESP 16; TEMP 36.9; O2SAT 93
[2022-12-19] MEDS: Aspirin E.C. 81 MG Tablet PO (10:02)
[2022-12-19] MEDS: Heparin Injection (Vial) 5,000 UNIT/ML VIAL 5000 UNIT SC (10:03)
[2022-12-19] MEDS: Acarbose 50 MG Tablet PO (10:03)
[2022-12-19] MEDS: Multivitamins,Therapeutic Tablet 1 TABLET PO (10:03)
[2022-12-19] MEDS: Pantoprazole Sodium 20 MG Tablet PO (10:03)
--- NOTE | 2022-12-19 11:00 | CASEMGMT ---
RN CM Face to Face with patient for initial transition planning/care coordination assessment. RN CM introduced self and role at [facility]. Patient sitting in chair, alert and oriented, mother at bedside. Patient willing to participate in assessment and is able to answer all questions appropriately. Care providers, pharmacy, and demographics verified. Patient wishes to discharge home, denies need for home health at this time. Patient states he has no further needs or concerns at this time. CM to follow for discharge planning needs that may arise. PCP: ALEX Hitchcock Specialists: [facility] Preferred Pharmacy: [facility] Insurance: [employer] Prescription Benefit: yes Living Will/HPOA: none LNOK: mother Living Arrangements: Patient lives with mother in a single story home with 1 steps to enter. Patient states he is independent at home. Transportation: self, mother DME/HHC: Patient has shower chair, raised toilet, cane, walker, grab bars, and glucometer and supplies at home. No previous HHC or SNF Disposition Plan: [place] to discharge home with family support and follow up plans in place. Liz DE LA ON, RN, CM
[2022-12-19 12:11] LABS: Bedside Glucose 106 mg/dL (74-106)
--- NOTE | 2022-12-19 14:30 | PN.RENAL_ITS ---
Subjective Subjective Following for AR superimposed on CKD Patient sitting in chair, his mother is at bedside. Patient denies any compla ints and hopeful to go home soon. Objective Data Objective Data Vital Signs: Vital Signs Temp Pulse Resp BP Pulse Ox O2 Del Method 98.5 F 97 16 122/81 H 93 Room Air 12/19/22 09:00 12/19/22 09:00 12/19/22 09:00 12/19/22 09:00 12/19/22 09:00 12/19/22 14:00 Oxygen Delivery Method Room Air Weight: 132.1 kg Body Mass Index (BMI) 40.6 Intake & Output: Intake and Output for Last 24 Hours 12/17/22 12/18/22 12/19/22 23:59 23:59 23:59 Intake Total 240 / 240 720 / 720 600 / 600 Output Total 2585 / 2585 2900 / 2900 800 / 800 Balance -2345 / -2345 -2180 / -2180 -200 / -200 Lab / Micro Data Result Diagrams: 12/19/22 04:45 12/19/22 04:45 Labs: Laboratory Results - last 24 hr 12/18/22 06:30: Hemoglobin A1c 5.8 H 12/18/22 16:49: POC Glucose 112 H 12/18/22 21:25: POC Glucose 82 12/19/22 04:45: WBC 2.8 L, RBC 3.07 L, Hgb 9.4 L, Hct 30.5 L, MCV 99.3 H, MCH 30.6, MCHC 30.8 L, RDW Std Deviation 55.8 H, RDW Coeff of Stanley 15.3 H, Plt Count 216, MPV 10.1, Immature Gran % (Auto) 0.700, Neut % (Auto) 51.1, Lymph % (Auto) 40.7, [place] % (Auto) 6.4, Eos % (Auto) 1.1, Baso % (Auto) 0.0, Absolute Neuts (auto) 1.4 L, Absolute Lymphs (auto) 1.14, Nucleated RBC % 0 12/19/22 04:45: Sodium 140, Potassium 4.2, Chloride 110 H, Carbon Dioxide 25.0, Anion Gap 5, BUN 39 H, Creatinine 2.21 H, Estim Creat Clear Calc 36.91, Est GFR (MDRD) Af Amer 39 L, Est GFR (MDRD) Non-Af 32 L, BUN/Creatinine Ratio 17.6, Glucose 113 H, Calcium 9.0 12/19/22 06:42: POC Glucose 115 H 12/19/22 11:37: POC Glucose 106 Rhythm Strip Rhythm Strip: Sinus Rhythm Rate: 91 Ectopy: None Physical Exam Narrative General appearance: Alert and oriented x3, NAD. Neck: Supple, no JVD Cardiovascular: Normal S1, S2. No rubs, murmurs, or gallops. Lungs: Clear to auscultation bilaterally. Abdomen: Normal bowel sound, obese, soft, nontender, no guarding or rebound. Extremities: There is trace edema of the lower extremities bilaterally. Assessment & Plan Assessment/Plan (1) AR (acute kidney injury): (2) Chronic kidney disease, stage 3b: (3) Hyperkalemia: (4) Edema: PLAN: Plan Impression/Plan: The patient is a 62-year-old man with past history of type 2 diabetes mellitus, hypertension, hyperlipidemia, BASHIR (nonadherent with CPAP), and GERD. The patient presented to the hospital on 12/17/2022 because of abnormal blood work showing AR on CKD and hyperkalemia. Nephrology is following for AR on CKD, hyperkalemia, and volume overload. Acute kidney injury on chronic kidney disease stage IIIb. The patient was found to have AR on CKD with serum creatinine of 4.61 mg/dL on 12/16/2022. Serum creatinine was 1.59 mg/dL on 05/28/2022. The patient was instructed by his PCP to present to the emergency department because of the sudden rise in serum creatinine. Serum creatinine on hospital admission on 12/17/2022 was 3.53 mg/dL. However, the patient is hyperkalemic with potassium level of 6.5 mmol/L. Renal function improved, today his creatinine is 2.21 mg/dL. There is no acute indication for DECKER OPERATOR. Suspect worsening renal function is due to progression of underlying CKD. Nevertheless, loss of GFR is quite quick. He has lost 23 mL/min of GFR in the last 6 months. Urine protein to creatinine ratio 198 mg/g, so progression of CKD due to diabetic kidney disease is less likely. Therefore, we should look for any reversible causes for AR. The patient may have cardiorenal syndrome since he had edema of the lower extremities. The patient was given 1 dose of IV Lasix and renal function remained stable Agree with holding Lasix today and reassessing renal function and volume status again tomorrow. Renal ultrasound did not show any hydronephrosis, right kidney 12.2 cm, left kidney 12.3 cm. Bladder volume 1100 mL, postvoid bladder volume 44 mL Hyperkalemia. Potassium level was 6.5 mmol/L on 12/17/2022. Hyperkalemia is likely due to AR on CKD and dietary indiscretion. 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 Today we reviewed importance of low potassium diet, foods/fluids to avoid, pamphlet given The patient was not on KEYON inhibitor or supplemental potassium chloride as far as we can tell from medication review, but the patient has absolutely no idea what he takes at home. Edema. The patient has lower extremity edema although there is no evidence of pulmonary edema on chest x-ray or an lung exam. The patient received 1 dose of IV Lasix with clinical improvement without worsening renal function. There is less lower extremity edema. Urine protein to creatinine ratio does not suggest nephrotic syndrome. Echo September 2020: Normal LV size, mild concentric left ventricular hypertrophy, left ventricular systolic function normal, EF 60%, stage I diastolic dysfunction 2D echo ordered bps acceptable Disposition; will arrange for hospital follow-up in [place] office
[2022-12-19 15:00] VITALS: BP 138/81; PULSE 100; RESP 18; TEMP 36.6; O2SAT 98
--- NOTE | 2022-12-19 16:00 | DCINST_ITS ---
Discharge Instructions Diet Discharge Diet: 2000 Calorie Control Diet Dressing / Incision Call your doctor if you observe: Shortness of breath, Swelling in the ankles and Chest pain Follow Up Care Test Results: Test results from this visit will be discussed in further detail at your follow- up appointment, if applicable. Discharge Plan Admission Admit Date/Time: 12/17/22 10:10 Primary Reason for Your Visit: AR Attending Provider: Mohan Doss Primary Care Provider: Radha Hitchcock NP Consulting Providers: Karin Cartwright ; Chago Fontana Discharge Orders/Prescriptions Prescriptions: Continued pioglitazone 45 mg tablet 45 mg PO QDAY 90 Days Qty: 90 Label Comments: TAKE 1 TABLET BY MOUTH EVERY DAY acarbose 50 mg tablet 50 mg PO TID 30 Days Qty: 90 Label Comments: Take 1 tablet(s) 3 times a day by oral route with meals. omeprazole 20 mg capsule,delayed release(DR/EC) 20 mg PO DAILY multivitamin Tablet 1 tab PO DAILY aspirin [Adult Low Dose Aspirin] 81 mg tablet,delayed release (DR/EC) 81 mg PO DAILY pravastatin 80 mg tablet 80 mg PO DAILY Label Comments: Take 1 tablet Tablet by mouth daily Referrals / Follow Up: [facility] [Provider Group] - Within 1 Month Radha Hitchcock NP, STRAIGHTENING PRESS OPERATOR-C [Primary Care Provider] - Within 2 Weeks Disposition Disposition (needs filled in before D/C Order can be placed): Home, Self Care
--- NOTE | 2022-12-19 16:06 | PCM.DC.SUM ---
Providers Date of Admission: 12/17/22 Primary Care Physician: TIANA Martínez Consultations 12/17/22 10:15 Consult: Nephrology Routine Consulting Provider: Karin Cartwright Reason for Consult: Severe Hyperkalemia, AR EMERGENT Consult: Yes MD Notified: Yes Date Notified: 12/17/22 Time Notified: 10:15 Method of Notification: ED Physician Initiated Reason For Visit: HYPERKALEMIA Diagnosis Discharge Diagnosis (1) AR (acute kidney injury): Status: Acute Code(s): N17.9 - Acute kidney failure, unspecified Plan: AR on CKD stage IIIb with hyperkalemia and hypervolemia: Patient is being admitted in PCU. Renal ultrasound was done shows simple cyst of left kidney 1.3 cm otherwise normal bladder and left kidney. Serum magnesium and phosphorus are normal. 12/18: Covered Buckle Assembler consult reviewed and discussed with him. Patient had Lasix 40 mg 1 dose yesterday and leg edema is better. BUN/creatinine is improving. Random protein 8.4, sodium 35, urea nitrogen 26. TSH normal. 12/19: Improving. Patient follow-up with nephrology as outpatient. 2D echocardiogram was performed today but is still not read as of yet. Concern was for possibility of cardiorenal syndrome. Has not been ruled out but overall patient is doing well and I will feel is necessary that patient wait on echocardiogram report any further and that can be followed up as outpatient. Discussed with the patient and he is agreeable to this. (2) Chronic kidney disease, stage 3b: Status: Acute Code(s): N18.32 - Chronic kidney disease, stage 3b (3) Hyperkalemia: Status: Acute Code(s): E87.5 - Hyperkalemia Plan: Resolved Potassium 6.5, BUN/creatinine 55/3.53, bicarb 26. Hyperkalemia cocktail was given including calcium gluconate, insulin and D50. Kayexalate given. Twelve-lead EKG individually reviewed shows sinus rhythm at 91 BPM, frequent PVCs, LAD, low voltage QRS, incomplete RBBB with nonspecific ST-T changes. Lasix 40 mg IV 1 dose. (4) Edema: Status: Acute Code(s): R60.9 - Edema, unspecified Plan Chronic conditions: CKD stage IIIb with possible cardiorenal disease/diabetic nephropathy and heart failure exact etiology classification unclear: Patient had [place] about 3 years ago. Patient might have heart failure with leg swelling and weight gain therefore 2D echo is ordered. Patient has mild chronic normocytic normochromic anemia probably due to CKD. Dyslipidemia: Fasting profile from 12/16 shows TG 268, TC 132, LDL 68, HDL 10. Started on the atorvastatin 40 mg daily Hypertension: BP is normal. Monitor and titrate the dose of antihypertensive medications accordingly. DM type II: Glucose in BMP 119. His glucose was 134 in May 2022 and 57 12/16. Glucose profile getting normal probably due to progression of CKD 12/18: A1c 5.8 arthritis, morbid obesity, history of shingles and history of sleep apnea: Patient nonadherent with CPAP and does not wear CPAP.. Outpatient follow-up PCP. Medications at Discharge Home Medications acarbose 50 mg tablet 50 mg PO TID 30 days #90 tabs 11/17/17 pioglitazone 45 mg tablet 45 mg PO QDAY 90 days #90 tabs 11/17/17 omeprazole 20 mg capsule,delayed release 20 mg PO DAILY 02/04/21 multivitamin 1 tab PO DAILY 12/24/21 aspirin 81 mg tablet,delayed release (Adult Low Dose Aspirin) 81 mg PO DAILY 02/11/22 pravastatin 80 mg tablet 80 mg PO DAILY CHOLESTEROL 12/17/22 Hospital Course Operations None Procedures 2-D Echocardiogram Summary of Care Provided Minutes Spent on Discharge: 35 Hospital Course: 62-year-old male presents with acute kidney injury. Patient presented with a creatinine of 3.53 as well as a potassium of 6.5. Patient was edematous did receive some IV Lasix which did help., Today, his potassium is 4.2 and his creatinine is 2.21. Patient is otherwise doing well. Patient did have a 2D echocardiogram performed to see if he has any evidence of cardiorenal syndrome but that that is still pending. Kidney ultrasound was unremarkable. Patient will be discharged home today and follow-up with nephrology as outpatient. Weight / BMI Weight Weight: 132.1 kg Body Mass Index (BMI) 40.6 ABG / Lab / Microbiology Data Result Diagrams: 12/19/22 04:45 12/19/22 04:45 Laboratory: Laboratory Results - last 24 hr 12/18/22 06:30: Hemoglobin A1c 5.8 H 12/18/22 16:49: POC Glucose 112 H 12/18/22 21:25: POC Glucose 82 12/19/22 04:45: WBC 2.8 L, RBC 3.07 L, Hgb 9.4 L, Hct 30.5 L, MCV 99.3 H, MCH 30.6, MCHC 30.8 L, RDW Std Deviation 55.8 H, RDW Coeff of [place] 15.3 H, Plt Count 216, MPV 10.1, Immature Gran % (Auto) 0.700, Neut % (Auto) 51.1, Lymph % (Auto) 40.7, [place] % (Auto) 6.4, Eos % (Auto) 1.1, Baso % (Auto) 0.0, Absolute Neuts (auto) 1.4 L, Absolute Lymphs (auto) 1.14, Nucleated RBC % 0 12/19/22 04:45: Sodium 140, Potassium 4.2, Chloride 110 H, Carbon Dioxide 25.0, Anion Gap 5, BUN 39 H, Creatinine 2.21 H, Estim Creat Clear Calc 36.91, Est GFR (MDRD) Af Amer 39 L, Est GFR (MDRD) Non-Af 32 L, BUN/Creatinine Ratio 17.6, Glucose 113 H, Calcium 9.0 12/19/22 06:42: POC Glucose 115 H 12/19/22 11:37: POC Glucose 106 D/C Instructions Discharge Diet: 2000 Calorie Control Diet Call your doctor if you observe: Shortness of breath, Swelling in the ankles and Chest pain Meaningful Use Info Meaningful Use Diagnoses (Choose all that apply): None applicable Discharge Plan Admission Admit Date/Time: 12/17/22 10:10 Primary Reason for Your Visit: AR Attending Provider: Mohan Doss Primary Care Provider: Radha Hitchcock NP Consulting Providers: Karin Cartwright ; Chago Fontana Discharge Orders/Prescriptions Prescriptions: Continued pioglitazone 45 mg tablet 45 mg PO QDAY 90 Days Qty: 90 Label Comments: TAKE 1 TABLET BY MOUTH EVERY DAY acarbose 50 mg tablet 50 mg PO TID 30 Days Qty: 90 Label Comments: Take 1 tablet(s) 3 times a day by oral route with meals. omeprazole 20 mg capsule,delayed release(DR/EC) 20 mg PO DAILY multivitamin Tablet 1 tab PO DAILY aspirin [Adult Low Dose Aspirin] 81 mg tablet,delayed release (DR/EC) 81 mg PO DAILY pravastatin 80 mg tablet 80 mg PO DAILY Label Comments: Take 1 tablet Tablet by mouth daily Referrals / Follow Up: [facility] [Provider Group] - Within 1 Month Radha Hitchcock FINANCIAL SERVICES OFFICER, FINANCIAL SERVICES OFFICER-C [Primary Care Provider] - Within 2 Weeks Disposition Disposition (needs filled in before D/C Order can be placed): Home, Self Care Charges/Coding Visit Charges Inpatient E&M: 82648 Disch Hosp >30min
[2022-12-19 16:55] LABS: Bedside Glucose 86 mg/dL (74-106)
== END 2022-12-19 17:00 | disposition home or self-care (01) | DRG 683 ==
LOC: ED 11:43 → PCU 12:45
PROVIDERS: Internal Medicine Nephrology; Admitting Provider Internal Medicine; Emergency Provider Emergency Medicine; PCP Nurse Practitioner Family
DX: N17.9 Acute kidney failure, unspecified (principal); I13.0 Hypertensive heart and chronic kidney disease with heart failure and stage 1 through stage 4 chronic kidney disease, or unspecified chronic kidney disease; I50.32 Chronic diastolic (congestive) heart failure; Z68.41 Body mass index [BMI] 40.0-44.9, adult; D63.1 Anemia in chronic kidney disease; N04.9 Nephrotic syndrome with unspecified morphologic changes; E11.22 Type 2 diabetes mellitus with diabetic chronic kidney disease; N18.32 Chronic kidney disease, stage 3b; E66.01 Morbid (severe) obesity due to excess calories; E11.65 Type 2 diabetes mellitus with hyperglycemia; E87.5 Hyperkalemia; E78.00 Pure hypercholesterolemia, unspecified; K21.9 Gastro-esophageal reflux disease without esophagitis; M19.90 Unspecified osteoarthritis, unspecified site; G47.33 Obstructive sleep apnea (adult) (pediatric); I49.3 Ventricular premature depolarization; R60.0 Localized edema; Z79.82 Long term (current) use of aspirin; Z79.84 Long term (current) use of oral hypoglycemic drugs; Z79.899 Other long term (current) drug therapy; Z87.891 Personal history of nicotine dependence
CPT/HCPCS: 36415; 71046; 76770; 80048; 80069; 81001; 82570; 82962; 83036; 83735; 83880; 84100; 84132; 84156; 84300; 84443; 84540; 85025; 93005; 93306; 94668; 99285; J7030; Q9957; A4216; C8929; J0610; J1940

== ENCOUNTER → 2023-04-20 | Outpatient (CLI) | payer OTHER, SELFPAY ==
--- NOTE | 2023-04-20 07:22 | EKG12_ITS ---
Test Reason : PREOP Blood Pressure : / mmHG Vent. Rate : 079 BPM Atrial Rate : 079 BPM P-R Int : 160 ms QRS Dur : 110 ms QT Int : 366 ms P-R-T Axes : 043 -53 015 degrees QTc Int : 419 ms Normal sinus rhythm Left axis deviation Incomplete right bundle branch block Abnormal ECG Confirmed by EVETTE ROBERTS, MONIE ([id number]), editor & co founder DIMITRI LARA ([id number]) on 04/21/2023 9:13:08 AM Referred By: Radha Hitchcock Confirmed By:MONIE ALAS MD
[2023-04-20 08:06] LABS: Hematocrit 38.7 % (40-54); Hemoglobin 11.7 g/dL (13.0-16.5); Mean Corp Hgb Conc 30.2 g/dL (32-36); Mean Corpuscular Volume 102.7 fL (80-94); Mean Platelet Vol. 10.4 fl (6.2-12.0); Platelet Count 193 K/mm3 (150-450); RBC Distribution Width CV 12.5 % (11.6-14.6); RBC Distribution Width SD 46.5 fl (35.1-43.9); Red Blood Count 3.77 M/mm3 (4.6-6.2); White Blood Count 4.9 K/mm3 (4.4-11.0)
[2023-04-20 08:34] LABS: AST(SGOT) 20 U/L (15-37); Alanine Aminotransfer ALT/SGPT 24 U/L (16-61); Albumin, Serum 3.1 g/dL (3.2-5.0); Alkaline Phosphatase 49 U/L (45-117); Anion Gap 4 (5-15); BUN 19 mg/dL (7-18); BUN/Creat Ratio 13.4 RATIO (10-20); Calcium,Total 8.7 mg/dL (8.5-10.1); Chloride 111 mmol/L (98-107); Creatinine, Serum 1.42 mg/dL (0.70-1.30); EST Glomerular Filtration Rate 54 mL/min (>60); Est Glom Filt Rate - Afr Amer 65 mL/min (>60); Globulin 3.1 g/dL (2.2-4.2); Glucose 144 mg/dL (74-106); Protein, Total 6.2 g/dL (6.4-8.2); Sodium Level 142 mmol/L (136-145)
== END | disposition home or self-care (01) ==
LOC: PSN 07:14
PROVIDERS: PCP Nurse Practitioner Family; Referring Provider Nurse Practitioner Family; Visit Provider Nurse Practitioner Family
DX: I12.9 Hypertensive chronic kidney disease with stage 1 through stage 4 chronic kidney disease, or unspecified chronic kidney disease (principal); E11.69 Type 2 diabetes mellitus with other specified complication; E11.22 Type 2 diabetes mellitus with diabetic chronic kidney disease; E66.01 Morbid (severe) obesity due to excess calories; N18.32 Chronic kidney disease, stage 3b; D63.1 Anemia in chronic kidney disease
CPT/HCPCS: 36415; 80053; 85027; 93005